=== PATIENT | male | born 1950 | race Caucasian/White ===

== ENCOUNTER 2016-03-11 14:26 | Outpatient (CLI) | payer MEDICARE, OTHER ==
[2015-07-29 01:23] VITALS: BP 112/86
--- NOTE | 2016-03-11 16:39 | Diagnostic Imaging Report ---
[facility] [address] [facility].[address] 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 Findings: Examination right shoulder multiple views demonstrates degenerative changes in the acromioclavicular joint with mild narrowing of the joint space and osteophyte formation. The glenohumeral relationship appears anatomic. There is no evident fracture and no lytic or blastic lesion. Impression: 1. 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 Electronically signed on Mar 11, 2016 3:25:24 PM SCROLL MACHINE OPERATOR by: Pipo BARNES
== END 2016-03-11 14:30 ==
LOC: RAD 14:26
PROVIDERS: ATTEND Family Medicine
DX: M25.511 Pain in right shoulder (principal)
CPT/HCPCS: 73030

== ENCOUNTER 2016-06-03 18:14 | Emergency (ER) | payer MEDICARE, OTHER ==
--- NOTE | 2016-06-03 18:16 | ED Physician Documentation ---
General Adult - HISTORIAN Historian: patient - HPI Stated Complaint: food lodged in esophagus Chief Complaint: General Adult Onset: hours Timing: still present Severity: mild Further Comments: yes (Pt is a 65 yo male who says he has food lodged in his esophagus. Pt appears comfortable and has no airway compromise. Pt has had this problem before. Pt states that he has had balloon dilitation of his esophagus in the past.) - ROS CONST: no problems EYES/ENT: none CVS/RESP: none GI/: other (food lodged in esophagus) MS/SKIN/LYMPH: none - PAST HX Past History: other (GERD, HTN, esophageal dilitation) - SOCIAL HX Smoking History: non-smoker - FAMILY HX Family History: No - VITAL SIGNS Vital Signs: Vital Signs Temp Pulse Resp BP Pulse Ox 112/86 07/28/15 22:35 - REVIEWED ASSESSMENTS Nursing Assessment Reviewed: Yes Vitals Reviewed: Yes <Chauncey Trujillo - Last Filed: 06/03/16 19:01> - VITAL SIGNS Vital Signs: Vital Signs Temp Pulse Resp BP Pulse Ox 97.5 F L 96 H 16 118/95 99 06/03/16 18:15 06/03/16 18:15 06/03/16 18:15 06/03/16 18:15 06/03/16 18:15 <LINH BASHIR - Last Filed: 06/03/16 21:01> - PAST HX Allergies/Adverse Reactions: Allergies Allergy/AdvReac Type Severity Reaction Status Date / Time codeine [Codeine] Allergy Severe Anaphylaxis Verified 06/03/16 18:24 Home Medications: Ambulatory Orders Medication Instructions Recorded Ranitidine HCl 150 mg PO QDAY 06/03/16 Progress - Progress Progress: Glucagon 1 mg IV Care transferred to Linh Bashir at 1900. Will repeat Glucagon in 30 min. If sx not resolved will transfer to [facility] Adhikari. Case discussed with Dr. Adhikari. GI, [facility] <Chauncey Trujillo - Last Filed: 06/03/16 19:01> - Progress Progress: Patient walking in hallway. Patient spitting in cup, unable to swallow his secretions. Extended wait time due to code in ER 1999 Second glucagon given, patient walking around [address] Adhikari at [facility], patient not accepted, admission advisor to speak with ER attending. [address] Monroy, ER attending. Patient updated on plan of care. Explained he would need a ride home from [facility], states he is called a friend. Explained he would be discharged home post procedure. <LINH BASHIR - Last Filed: 06/03/16 21:01> ED Results Lab/Radiology - Orders Orders: ED Orders Category Date Time Status Amoxicillin/Potassium Clav [Augmentin 875Mg/125Mg] Med 06/03/16 18:40 Discontinued 1 each PO NOW ONE Glucagon,Human Recombinant [Glucagen] Med 06/03/16 18:46 Discontinued 1 mg .ROUTE .STK-MED ONE Glucagon,Human Recombinant [Glucagen] Med 06/03/16 18:45 Discontinued 1 mg IVP NOW ONE Glucagon,Human Recombinant [Glucagen] Med 06/03/16 19:56 Discontinued 1 mg IVP NOW ONE <LINH BASHIR - Last Filed: 06/03/16 21:01> General Adult Physical Exam - PHYSICAL EXAM GENERAL APPEARANCE: no distress EENT: pharynx normal NECK: normal inspection, supple RESPIRATORY: no resp distress, chest non-tender CVS: reg rate & rhythm, heart sounds normal ABDOMEN: soft, no organomegaly, normal bowel sounds BACK: normal inspection SKIN: warm/dry, normal color EXTREMITIES: non-tender, normal range of motion, no evidence of injury NEURO: oriented X3, motor nml, sensation nml <Chauncey Trujillo - Last Filed: 06/03/16 19:01> Discharge Decision to Admit: NO <Chauncey Trujillo - Last Filed: 06/03/16 19:01> Decision to Admit: NO Decision Time: 21:00 <LINH BASHIR - Last Filed: 06/03/16 21:01> Clincal Impression: food lodged in esophagus Referrals: Nas Shook MD [Primary Care Provider] - Home Medications: Ambulatory Orders Ranitidine HCl 150 mg PO QDAY 06/03/16 Condition: Stable Disposition: 02 XFER [facility]
[2016-06-03] MEDS ORDERED: AMOXICILLIN/POT 875/125 1 EACH PO ONE (18:40)
[2016-06-03] MEDS ORDERED: GLUCAGON,HUMAN RECOMBINANT 1 MG/ML VIAL IVP ONE ×2 (18:45→19:56)
[2016-06-03] MEDS ORDERED: GLUCAGON,HUMAN RECOMBINANT 1 MG/ML VIAL ONE (18:46)
[2016-06-03] MEDS ORDERED: ONDANSETRON HCL/PF 4 MG/ 2ML VIAL IVP ONE (20:56)
[2016-06-03] MEDS ORDERED: 0.9 % SODIUM CHLORIDE 1,000 ML IV ONE ×2 (21:03)
[2016-06-03 21:33] VITALS: BP 130/93
== END 2016-06-03 21:20 | disposition short-term general hospital (02) ==
LOC: ED 18:14
DX: T18.128A Food in esophagus causing other injury, initial encounter (principal); X58.XXXA Exposure to other specified factors, initial encounter; Y93.9 Activity, unspecified; Y99.9 Unspecified external cause status
CPT/HCPCS: 96374; 96376; 99283; 99284; J1610; J2405; J7030; S1016

== ENCOUNTER 2016-07-27 14:45 | Outpatient (CLI) | payer MEDICARE, OTHER | END 2016-07-27 14:46 | LOC: RT 14:45 | PROVIDERS: ATTEND Family Medicine | DX: J96.10 Chronic respiratory failure, unspecified whether with hypoxia or hypercapnia (principal) ==

== ENCOUNTER 2016-09-05 13:42 | Outpatient (CLI) | payer OTHER ==
--- NOTE | 2016-09-05 14:21 | Diagnostic Imaging Report ---
[facility] [address] [facility].[address] [address] Report Submission Date: Sep 05, 2016 2:19:16 PM CDT Patient Study Name: THOMAS DEGROOT Date: Sep 05, 2016 1:55:26 PM CDT Modality Type: CR Gender: M Description: PELVIS : 54 Institution: [facility] Physician: YAQUELIN VENTURA - [place] Examination: Plain film pelvis/hips History: Discomfort Comparison exams: None provided Findings: 5 views of the pelvis/hips demonstrates normal cortical margins. No fracture. No dislocation. Superior and inferior pubic rami and iliac wings are without abnormality. Impression: No acute osseous process. Electronically signed on Sep 05, 2016 2:19:16 PM CDT by: Kavin BARNES
== END 2016-09-05 13:44 ==
LOC: RAD 13:42
PROVIDERS: ATTEND Family Medicine
DX: M25.551 Pain in right hip (principal)
CPT/HCPCS: 73521

== ENCOUNTER 2016-10-13 11:22 | Emergency (ER) | payer OTHER ==
[2016-10-13 11:40] VITALS: BP 138/92
[2016-10-13] MEDS: ORPHENADRINE CITRATE 60 MG/2ML IM ONE (12:20)
[2016-10-13] MEDS: KETOROLAC TROMETHAMINE 60 MG/2 ML VIAL IM ONE (12:21)
--- NOTE | 2016-10-13 14:30 | ED Physician Documentation ---
Neck Injury/Pain - HISTORIAN Historian: patient - HPI Stated Complaint: neck pain Chief Complaint: Neck Pain Additional Information: x 2 days Onset: days ago (2) Duration: continues in ED Recent Injury: No Context: other (woke this way) Where: home Other Injuries: other (no injury) Severity: moderate Quality: sharp Front/Back of Body, Lg (Color): 1 - pain 2 - pain Associated Symptoms: other (none) Exacerbated By: movement of neck Relieved By: remaining still Further Comments: no - ROS NEURO/PSYCH: denies: difficulty with speech, anxiety, depression EYES/ENT: none CVS/RESP: none CONST: no problems GI/: denies: nausea, vomiting, problems urinating, incontinence MS/SKIN/LYMPH: none - PAST HX Past History: other (htn) Cardiac Risk Factors: hypertension Surgeries/Procedures: none CT/MRI: No Immunizations: referred to PCP Allergies/Adverse Reactions: Allergies Allergy/AdvReac Type Severity Reaction Status Date / Time codeine [Codeine] Allergy Severe Anaphylaxis Verified 10/13/16 11:30 Home Medications: Ambulatory Orders Medication Instructions Recorded Losartan/Hydrochlorothiazide 1 each PO QDAY 10/13/16 [Hyzaar 100-25 Tablet] Metoprolol Tartrate [Lopressor] 50 mg PO DAILY 10/13/16 Pantoprazole Sodium [Protonix] 40 mg PO 0700 10/13/16 Tamsulosin HCl [Flomax] 0.4 mg PO [id number] 10/13/16 - SOCIAL HX Smoking History: non-smoker Alcohol Use: none Drug Use: none - FAMILY HX Family History: no significant history - VITAL SIGNS Vital Signs: Vital Signs Temp Pulse Resp BP Pulse Ox 97.3 F L 89 16 138/92 96 10/13/16 12:28 10/13/16 12:28 10/13/16 12:28 10/13/16 12:28 10/13/16 12:28 - REVIEWED ASSESSMENT Nursing Assessment Reviewed: Yes Vitals Reviewed: Yes Progress - Results/Orders Results/Orders: x-ray c-spine ordered - Progress Progress: pt. stable entire time in er, given norflex 60 mg im, toradol 60 mg im in er Critical Care Note - Critical Care Note Total Time (mins): 0 ED Results Lab/Radiology - Lab Results Lab Results: none ordered - Radiology Radiology Impressions: ddd, djd, no acute fx - Orders Orders: ED Orders Category Date Time Status C SPINE 2 OR 3 VIEWS [RAD] Stat Exams 10/13/16 Ordered Ketorolac Tromethamine [Toradol] Med 10/13/16 12:13 Discontinued 60 mg IM NOW ONE Orphenadrine Citrate [Norflex] Med 10/13/16 12:13 Discontinued 60 mg IM NOW ONE Neck Injury/Pain - Physical Exam General Appearance: alert, moderate distress EENT: nml ENT inspection, pharynx nml Neck: thyroid nml, muscle spasm (bilat paracervical muscles), decreased ROM Nexus Criteria: Nexus criteria neg Back: non-tender, painless ROM Respiratory: chest non-tender, breath sounds nml CVS: heart sounds nml, bilateral pulses nml Abdomen: non-tender, no organomegaly, nml bowel sounds, no distention Skin: warm/dry, normal color Extremities: non-tender, normal range of motion, no evidence of injury, no edema Neuro/Psych: oriented x3, CN's nml as tested, sensation nml, motor nml, mood/ affect nml, jewelry appraiser nml, reflexes nml, jewelry appraiser symmetrical Discharge Clincal Impression: Torticollis, acute Referrals: Primary Doctor,No [Primary Care Provider] - 2 Days Home Medications: Ambulatory Orders Losartan/Hydrochlorothiazide [Hyzaar 100-25 Tablet] 1 each PO QDAY 10/13/16 Metoprolol Tartrate [Lopressor] 50 mg PO DAILY 10/13/16 Pantoprazole Sodium [Protonix] 40 mg PO 0700 10/13/16 Tamsulosin HCl [Flomax] 0.4 mg PO [id number] 10/13/16 Comments: discharged with scripts for parafon forte dsc 500 mg 1 p.i. qid #20, toradol 10 1 p.o. qid #20 Condition: Stable Disposition: 01 HOME, SELF-CARE Decision to Admit: NO Decision Time: 12:20
--- NOTE | 2016-10-13 15:17 | Diagnostic Imaging Report ---
AIDEE GRAY [facility] [address] [facility].[address] [address] Report Submission Date: Oct 13, 2016 12:31:53 PM CDT Patient Study Name: THOMAS DEGROOT Date: Oct 13, 2016 11:45:17 AM CDT Modality Type: CR Gender: M Description: SPINE : 54 Institution: [facility] Physician: AIDEE GRAY Cervical spine -three views CLINICAL HISTORY: Upper neck pain for 3 days. FINDINGS: Examination cervical spine AP, lateral, lateral swimmer's and open-mouth views demonstrates the vertebrae to be anatomically aligned. Prevertebral soft tissues are within normal limits. The C1-2 articulation is normal and the base the odontoid is intact. There is no evident fracture. IMPRESSION: No fracture. Electronically signed on Oct 13, 2016 12:31:53 PM CDT by: Pipo BARNES
== END 2016-10-13 12:28 | disposition home or self-care (01) ==
LOC: ED 11:22
DX: M43.6 Torticollis (principal)
CPT/HCPCS: 72040; J1885; J2360; 96372; 99283

== ENCOUNTER 2016-10-14 10:30 | Emergency (ER) | payer OTHER ==
[2016-10-14] MEDS: oxyCODONE/ACETAMINOPHEN 5/325 TABLET PO ONE (11:34)
--- NOTE | 2016-10-14 11:34 | ED Physician Documentation ---
Neck Injury/Pain - HISTORIAN Historian: patient - HPI Stated Complaint: neck pain Chief Complaint: Neck Pain Additional Information: was here yesterday, states meds not working Onset: days ago (5) Duration: continues in ED Recent Injury: Yes Context: other (unknown) Where: home Other Injuries: neck Severity: moderate Quality: sharp Associated Symptoms: denies: fever, chills, sweating, headache, chest pain, weakness, numbness, tingling Exacerbated By: movement of neck Relieved By: nothing Further Comments: no - ROS NEURO/PSYCH: denies: difficulty with speech, anxiety, depression EYES/ENT: none CVS/RESP: none CONST: no problems GI/: denies: nausea, vomiting, problems urinating, incontinence MS/SKIN/LYMPH: none - PAST HX Past History: arthritis, neck pain Surgeries/Procedures: none Immunizations: referred to PCP Allergies/Adverse Reactions: Allergies Allergy/AdvReac Type Severity Reaction Status Date / Time codeine [Codeine] Allergy Severe Anaphylaxis Verified 10/14/16 10:49 Home Medications: Ambulatory Orders Medication Instructions Recorded Losartan/Hydrochlorothiazide 1 each PO QDAY 10/13/16 [Hyzaar 100-25 Tablet] Metoprolol Tartrate [Lopressor] 50 mg PO DAILY 10/13/16 Pantoprazole Sodium [Protonix] 40 mg PO 0700 10/13/16 Tamsulosin HCl [Flomax] 0.4 mg PO [id number] 10/13/16 - SOCIAL HX Smoking History: non-smoker Alcohol Use: none Drug Use: none - FAMILY HX Family History: no significant history - VITAL SIGNS Vital Signs: Vital Signs Temp Pulse Resp BP Pulse Ox 80 14 130/80 98 10/14/16 11:40 10/14/16 11:40 10/14/16 11:40 10/14/16 11:40 - REVIEWED ASSESSMENT Nursing Assessment Reviewed: Yes Vitals Reviewed: Yes Progress - Results/Orders Results/Orders: no testing ordered - Progress Progress: pt. given percocet 5/325 p.o. in er Critical Care Note - Critical Care Note Total Time (mins): 0 ED Results Lab/Radiology - Lab Results Lab Results: none ordered - Radiology Radiology Impressions: none ordered today, ordered and reviewed yesterday - Orders Orders: ED Orders Category Date Time Status oxyCODONE HCL/ACETAMINOPHEN [Percocet 5-325 mg Tablet] Med 10/14/16 11:28 Discontinued 1 each PO NOW ONE Neck Injury/Pain - Physical Exam General Appearance: alert, moderate distress EENT: nml ENT inspection, pharynx nml, scleral icterus Neck: thyroid nml, muscle spasm, decreased ROM Back: non-tender, painless ROM. No: vertebral point-tendernes, CVA tenderness, muscle spasm Respiratory: chest non-tender, breath sounds nml CVS: heart sounds nml, bilateral pulses nml Abdomen: non-tender, no organomegaly, nml bowel sounds, no distention Skin: warm/dry, normal color Extremities: non-tender, normal range of motion, no evidence of injury, no edema Neuro/Psych: oriented x3, CN's nml as tested, sensation nml, motor nml, mood/ affect nml, supervisor securities vault nml, reflexes nml, supervisor securities vault symmetrical Discharge Clincal Impression: Torticollis Referrals: Primary Doctor,No [Primary Care Provider] - 2 Days Home Medications: Ambulatory Orders Losartan/Hydrochlorothiazide [Hyzaar 100-25 Tablet] 1 each PO QDAY 10/13/16 Metoprolol Tartrate [Lopressor] 50 mg PO DAILY 10/13/16 Pantoprazole Sodium [Protonix] 40 mg PO 0700 10/13/16 Tamsulosin HCl [Flomax] 0.4 mg PO [id number] 10/13/16 Comments: discharged in stable condition with script for percocet 5/325 1 p.o. qid prn pain Condition: Stable Disposition: 01 HOME, SELF-CARE Decision to Admit: NO Decision Time: 11:34
[2016-10-14 11:41] VITALS: BP 130/80
== END 2016-10-14 11:30 | disposition home or self-care (01) ==
LOC: ED 10:30
DX: M43.6 Torticollis (principal)
CPT/HCPCS: 99283; A9270-GY

== ENCOUNTER 2016-12-06 13:59 | Emergency (ER) | payer OTHER ==
--- NOTE | 2016-12-06 14:10 | ED Physician Documentation ---
General Adult - HISTORIAN Historian: patient - HPI Stated Complaint: high blood pressure Chief Complaint: General Adult Additional Information: hypertension reading at home 135/119 Onset: hours (1) Timing: better Severity: other (no pain ) Further Comments: no Last known Well Date: 12/06/16 Last Known Well Time: 13:00 Last known Well Code/Unknown Code: Unknown - ROS CONST: no problems EYES/ENT: none CVS/RESP: none GI/: none MS/SKIN/LYMPH: none NEURO/PSYCH: denies: headache, fainting, dizziness - PAST HX Past History: other (HTN ) Other History: none Surgeries/Procedures: none Immunizations: referred to PCP Allergies/Adverse Reactions: Allergies Allergy/AdvReac Type Severity Reaction Status Date / Time codeine [Codeine] Allergy Severe Anaphylaxis Verified 10/14/16 10:49 Home Medications: Ambulatory Orders Medication Instructions Recorded Losartan/Hydrochlorothiazide 1 each PO QDAY 10/13/16 [Hyzaar 100-25 Tablet] Metoprolol Tartrate [Lopressor] 50 mg PO DAILY 10/13/16 - SOCIAL HX Smoking History: non-smoker Alcohol Use: none Drug Use: none - FAMILY HX Family History: No - VITAL SIGNS Vital Signs: Vital Signs Temp Pulse Resp BP Pulse Ox 130/80 10/14/16 11:40 - REVIEWED ASSESSMENTS Nursing Assessment Reviewed: Yes Vitals Reviewed: Yes General Adult Physical Exam - PHYSICAL EXAM GENERAL APPEARANCE: no distress EENT: eye inspection normal, ENT inspection normal NECK: normal inspection CVS: reg rate & rhythm, heart sounds normal, equal pulses, no murmur ABDOMEN: soft, no organomegaly, normal bowel sounds, no distension BACK: normal inspection SKIN: warm/dry EXTREMITIES: non-tender, normal range of motion NEURO: oriented X3, CN's nml as tested Discharge Clincal Impression: Accelerated hypertension Referrals: Amelia Mirza PRN [Primary Care Provider] - 2 Days Condition: Stable Disposition: 01 HOME, SELF-CARE Decision to Admit: NO Date of Decison to Admit: 12/06/16 Decision Time: 14:21
[2016-12-06 14:14] VITALS: BP 111/82
== END 2016-12-06 14:24 | disposition home or self-care (01) ==
LOC: ED 13:59
DX: I10 Essential (primary) hypertension (principal)
CPT/HCPCS: 99283

== ENCOUNTER 2016-12-17 01:32 | Emergency (ER) | payer OTHER ==
[2016-12-17] MEDS ORDERED: IPRATROPIUM/ALBUTEROL SULFATE 3 ML AMPUL.NEB NEB ONE (01:48)
[2016-12-17] MEDS ORDERED: BUDESONIDE 0.5MG/2ML AMPUL.NEB NEB ONE (01:49)
[2016-12-17] MEDS: IPRATROPIUM/ALBUTEROL SULFATE 3 ML AMPUL.NEB NEB ONE (01:50)
[2016-12-17] MEDS: BUDESONIDE 0.5MG/2ML AMPUL.NEB NEB ONE (02:00)
--- NOTE | 2016-12-17 02:15 | ED Physician Documentation ---
Upper Respiratory Symptoms - HISTORIAN Historian: patient - HPI Stated Complaint: cough Chief Complaint: Cough/ Upper Respiratory Additional Information: cough x 1 week, occ. productive Onset: days ago (7) Duration: sudden-Onset Context: denies: recent foreign travel, insect bite(s), tick(s), recent chemotherapy, multiple patients, same sx Severity: moderate Associated Symptoms: productive cough Worsened by Deep Breath: Yes Further Comments: no - ROS CONST/EYES: denies: weakness, eye redness, eye itching CVS/RESP: other (cough, worse at night) LYMPH: denies: leg swelling, rash, swollen glands, ankle swelling GI/: none NEURO/PSYCH: denies: fainting, dizziness, confusion, anxiety, depression MS/SKIN: denies: joint pain, muscle aches, rash - PAST HX Lung Disease: asthma PE Risk Factors: hypertension Surgeries/Procedures: none Immunizations: referred to PCP Allergies/Adverse Reactions: Allergies Allergy/AdvReac Type Severity Reaction Status Date / Time codeine [Codeine] Allergy Severe Anaphylaxis Verified 12/17/16 01:46 Home Medications: Ambulatory Orders Medication Instructions Recorded Losartan/Hydrochlorothiazide 1 each PO QDAY 10/13/16 [Hyzaar 100-25 Tablet] Metoprolol Tartrate [Lopressor] 50 mg PO DAILY 10/13/16 - SOCIAL HX Smoking History: non-smoker Alcohol Use: none Drug Use: none - FAMILY HX Family History: no significant history - VITAL SIGNS Vital Signs: Vital Signs Temp Pulse Resp BP Pulse Ox 97.8 F 80 16 119/53 95 12/17/16 01:35 12/17/16 01:35 12/17/16 01:35 12/17/16 01:35 12/17/16 01:35 - REVIEWED ASSESSMENTS Nursing Assessment Reviewed: Yes Vitals Reviewed: Yes Progress - Results/Orders Results/Orders: cxr ordered - Progress Progress: pt. given pulmicort 0.5 mg via nebulizer, duoneb via nebulizer, 80 mg depo medrol, 8 mg decadron, 1.2 million units bicillinim in er Critical Care Note - Critical Care Note Total Time (mins): 0 ED Results Lab/Radiology - Lab Results Lab Results: none ordered - Radiology Radiology Impressions: cxr clear of infiltrates - Orders Orders: ED Orders Category Date Time Status CHEST 2 VIEW [CHEST P.A.&LAT 2 VIEWS] [RAD] Stat Exams 12/17/16 Taken Benzonatate [Tessalon] Med 12/17/16 01:52 Discontinued 200 mg PO NOW ONE Budesonide [Pulmicort] Med 12/17/16 01:49 Discontinued 0.5 mg NEB .STK-MED ONE Budesonide [Pulmicort] Med 12/17/16 01:50 Discontinued 0.5 mg NEB 1T ONE Dexamethasone Sod Phosphate [Decadron] Med 12/17/16 01:49 Discontinued 8 mg IM NOW ONE Ipratropium/Albuterol Sulfate [Duoneb] Med 12/17/16 01:48 Discontinued 3 ml NEB .STK-MED ONE Ipratropium/Albuterol Sulfate [Duoneb] Med 12/17/16 01:49 Discontinued 3 ml NEB NOW ONE Penicillin G Benzathine [Bicillin l-A] Med 12/17/16 02:33 Once 1,200,000 units IM NOW ONE methylPREDNISolone ACETATE [Depo-Medrol] Med 12/17/16 01:51 Discontinued 80 mg IM NOW ONE Upper Respiratory Symptoms - EXAM General Appearance: mild distress EENT: eyes nml inspection, nml ENT inspection, lids & conjunct. nml, PERRL, ear nml. No: pain over sinuses Neck: normal inspection, thyroid normal, supple Respiratory: no resp. distress, speaks full sentences, wheezes. No: retractions , splinting, accessory muscle use Abdomen: non-tender, no organomegaly, nml bowel sounds, no distention CVS: reg rate & rhythm, heart sounds normal, equal pulses, no murmur, no gallop , PMI nml, no JVD Skin: color nml, no rash, warm,dry Extremities: non-tender, normal range of motion, no evidence of injury, no edema Neuro/Psych: oriented x3, neuro intact, mood/affect nml Discharge Clincal Impression: Asthmatic bronchitis Qualifiers: Asthma severity: moderate Asthma persistence: persistent Asthma complication type: with acute exacerbation Qualified Code(s): J45.41 - Moderate persistent asthma with (acute) exacerbation Referrals: Amelia Mirza, PRN [Primary Care Provider] - 2 Days Comments: Discharged in stable condition with script for nebulizer. He has albuterol prefills at home he will use. Condition: Stable Disposition: HOME, SELF-CARE Decision to Admit: NO Decision Time: 02:15
[2016-12-17] MEDS: DEXAMETHASONE SOD PHOS 4 MG/ML VIAL IM ONE (02:18)
[2016-12-17] MEDS: methylPREDNISolone ACETATE 80 MG/ML VIAL IM ONE (02:18)
[2016-12-17] MEDS: BENZONATATE 100 MG CAPSULE PO ONE (02:21)
[2016-12-17] MEDS: PENICILLIN G BENZATHINE 1,200,000 UNITS INJ IM ONE (02:44)
[2016-12-17 02:52] VITALS: BP 119/58
--- NOTE | 2016-12-17 06:52 | Diagnostic Imaging Report ---
AIDEE GRAY [facility] [address] [facility] [address] [address] Report Submission Date: Dec 17, 2016 2:36:45 AM CDT Patient Study Name: THOMAS DEGROOT Date: Dec 17, 2016 2:05:57 AM CDT Modality Type: CR Gender: M Description: CHEST : 54 Institution: [facility] Physician: AIDEE GRAY Chest 2 views History: Cough and shortness of breath Findings: Low lung volumes are observed with bronchovascular crowding at the lung bases. Basilar bronchitis cannot be excluded. Heart size and pulmonary vascularity are normal. No pleural effusions are observed. Osseous structures are unremarkable. Impression: Limited exam due to expiratory technique. Basilar bronchitis cannot be excluded. Electronically signed on Dec 17, 2016 2:36:45 AM CDT by: Marco Antonio BARNES
== END 2016-12-17 02:50 | disposition home or self-care (01) ==
LOC: ED 01:32
DX: J45.41 Moderate persistent asthma with (acute) exacerbation (principal)
CPT/HCPCS: 71020; A9270; J1040; J1100; J7626; 96372; 99283

== ENCOUNTER 2017-01-13 17:57 | Emergency (ER) | payer OTHER ==
--- NOTE | 2017-01-13 18:51 | ED Physician Documentation ---
General Adult - HISTORIAN Historian: patient - HPI Stated Complaint: cramping Chief Complaint: General Adult Additional Information: pt has severe intermittent muscle cramps kayce of abd wall neck legs and generalized. THC helps but 'OUT' Onset: other (several months progressive occ has to sleep on floor-has RLS) Timing: worse Severity: moderate, severe - ROS CONST: no problems (as w/cc) EYES/ENT: denies: problems with vision CVS/RESP: none, other (occ dep edema belowknees only =- gone of am) GI/: abdominal pain. denies: vomiting, nausea, diarrhea MS/SKIN/LYMPH: neck pain, leg swelling, leg pain, back pain, other (as above) - PAST HX Past History: hypertension, other (gerd) Surgeries/Procedures: none - SOCIAL HX Smoking History: non-smoker Alcohol Use: rarely (wine) Drug Use: marijuana (used to do several drugs incl heroin) - FAMILY HX Family History: Yes (none significant) - VITAL SIGNS Vital Signs: Vital Signs Temp Pulse Resp BP Pulse Ox 98.4 F 96 H 20 113/85 96 01/13/17 18:05 01/13/17 18:05 01/13/17 18:05 01/13/17 18:05 01/13/17 18:05 - REVIEWED ASSESSMENTS Nursing Assessment Reviewed: Yes Vitals Reviewed: Yes <Conrad Friedman - Last Filed: 01/13/17 18:49> - VITAL SIGNS Vital Signs: Vital Signs Temp Pulse Resp BP Pulse Ox 98.4 F 96 H 20 113/85 96 01/13/17 18:05 01/13/17 18:05 01/13/17 18:05 01/13/17 18:05 01/13/17 18:05 <Chauncey Trujillo - Last Filed: 01/13/17 20:46> - PAST HX Allergies/Adverse Reactions: Allergies Allergy/AdvReac Type Severity Reaction Status Date / Time codeine [Codeine] Allergy Severe Anaphylaxis Verified 01/13/17 18:09 Home Medications: Ambulatory Orders Medication Instructions Recorded Losartan/Hydrochlorothiazide 1 each PO QDAY 10/13/16 [Hyzaar 100-25 Tablet] Metoprolol Tartrate [Lopressor] 50 mg PO DAILY 10/13/16 Progress - Progress Progress: NS 1 L IVF x 2 Pt with ongoing muscle cramping > 1 yr. Pt states he has had work-ups for this , but does not know any details. TSH, sed rate pending. Pt improved with IVF. Flexeril 10 mg, 1/2 or 1 tablet q 8 hrs prn muscle cramping. 1 tablet --> home. - EKG/XRAY/CT EKG: NSR (HR=98; normal AK interval; LAD.) XRAY: chest (No acute pulmonary process.) <Chauncey Trujillo - Last Filed: 01/13/17 20:46> ED Results Lab/Radiology - Orders Orders: ED Orders Category Date Time Status CHEST P.A.&LAT 2 VIEWS [RAD] Stat Exams 01/13/17 Ordered ARTERIAL BLOOD GAS Stat Lab 01/13/17 Uncollected CBC/PLATELET/DIFF Routine Lab 01/13/17 Ordered TSH [THYROID STIMULATING HORMONE] Stat Lab 01/13/17 Ordered NORMAL SALINE @ 1000 MLS/HR ( 1000ml BOLUS) Med 01/13/17 18:48 Ordered 0.9 % Sodium Chloride [Normal Saline] 1,000 ml IV Q1H EKG WITH COMPARISON Stat Ther 01/13/17 Ordered <Conrad Friedman - Last Filed: 01/13/17 18:49> - Lab Results Lab Results: Lab Results 01/13/17 19:14 WBC 7.90 K/ul K/ul (4.00-12.00) RBC 5.50 M/ul H M/ul (3.90-5.20) Hgb 16.8 g/dL g/dL (12.0-18.0) Hct 50.6 % % (37.0-53.0) MCV 92.1 fl fl (80.0-100.0) MCH 30.6 pg pg (28.0-34.0) MCHC 33.2 g/dL g/dL (30.0-36.0) RDW 13.2 % % (11.3-14.3) Plt Count 231 K/mm3 K/mm3 (130-400) Neut % (Auto) 67.4 % % (39.0-79.0) Lymph % (Auto) 16.5 % % (16.0-50.0) Oliver % (Auto) 6.0 % % (0.0-11.0) Eos % (Auto) 6.5 % % (0.0-6.8) Baso % (Auto) 0.6 (0.0-1.5) Neut # (Auto) 5.3 # k/uL # k/uL (1.4-7.7) Lymph # (Auto) 1.3 # k/uL # k/uL (0.6-4.0) Oliver # (Auto) 0.5 # k/uL # k/uL (0.0-0.9) Eos # (Auto) 0.5 # k/uL # k/uL (0.0-0.6) Baso # (Auto) 0.0 # k/uL # k/uL (0.0-0.5) Reactive Lymphs % 3.0 % % (0.0-5.0) Reactive Lymphs # 0.2 # k/uL # k/uL (0.0-0.8) - Orders Orders: ED Orders Category Date Time Status CHEST P.A.&LAT 2 VIEWS [RAD] Stat Exams 01/13/17 Taken ARTERIAL BLOOD GAS Stat Lab 01/13/17 Uncollected CBC/PLATELET/DIFF Routine Lab 01/13/17 19:14 Completed CMP Routine Lab 01/13/17 19:32 Received TSH [THYROID STIMULATING HORMONE] Stat Lab 01/13/17 19:14 Received sed rate [SEDIMENTATION RATE (ESR)] Routine Lab 01/13/17 19:33 Received 0.9 % Sodium Chloride [Normal Saline] 1,000 ml Med 01/13/17 18:48 Discontinued IV Q1H NORMAL SALINE @ 1000 MLS/HR ( 1000ml BOLUS) Med 01/13/17 20:01 Ordered 0.9 % Sodium Chloride [Normal Saline] 1,000 ml IV Q1H EKG WITH COMPARISON Stat Ther 01/13/17 Ordered <Chauncey Trujillo - Last Filed: 01/13/17 20:46> General Adult Physical Exam - PHYSICAL EXAM GENERAL APPEARANCE: moderate distress EENT: eye inspection normal NECK: normal inspection, stiff neck. No: thyromegaly, lymphadenopathy, carotid bruit RESPIRATORY: No: no resp distress CVS: reg rate & rhythm ABDOMEN: soft, non-tender. No: abnormal bowel sounds BACK: CVA tenderness (R), CVA tenderness (L), other (kayce neck tendernesss dbilat andesp spinous processes---abm not so tender right now). No: no CVA tenderness SKIN: warm/dry, normal color. No: cyanosis, diaphoresis, jaundice EXTREMITIES: normal range of motion, edema (mild) NEURO: oriented X3, motor nml, sensation nml, mood/affect nml <Conrad Friedman - Last Filed: 01/13/17 18:49> Discharge <Conrad Friedman - Last Filed: 01/13/17 18:49> Decision to Admit: NO Decision Time: 20:33 <Chauncey Trujillo - Last Filed: 01/13/17 20:46> Clincal Impression: muscle cramping Referrals: Amelia Mirza, PRN [Primary Care Provider] - Condition: Stable Disposition: 01 HOME, SELF-CARE
[2017-01-13] MEDS: 0.9 % SODIUM CHLORIDE 1,000 ML IV ONE ×2 (19:10→20:12)
[2017-01-13 19:22] LABS: BASOPHILS % 0.6 (0.0-1.5); EOSINOPHILS % 6.5 % (0.0-6.8); MEAN CORPUSCULAR HEMOGLOBIN 30.6 pg (28.0-34.0); MEAN CORPUSCULAR VOLUME 92.1 fl (80.0-100.0); NEUTROPHILS # 5.3 # k/uL (1.4-7.7)
[2017-01-13 20:02] LABS: eGFR (African) > 60; eGFR (Non-African) > 60
[2017-01-13] MEDS: CYCLOBENZAPRINE HCL 5 MG TABLET PO ONE (20:58)
[2017-01-13 21:07] VITALS: BP 110/82
--- NOTE | 2017-01-14 06:17 | Diagnostic Imaging Report ---
DIRK TRAN [facility] [address] [facility] [address] [place], [place]. [address] Report Submission Date: Jan 13, 2017 10:43:23 PM REHAB DIRECTOR Patient Study Name: EMERY LEÓN Date: Jan 13, 2017 10:23:00 PM REHAB DIRECTOR Modality Type: CR Gender: M Description: CHEST : [birth year] Institution: [facility] Physician: DIRK TRAN CRISTÓBAL Chest 2 views History: Cough and fever Findings: The exam is expiratory with bilateral bronchovascular crowding. There is no confluent infiltrate or pleural effusion. Heart size and pulmonary vascularity are normal. Bilateral bronchial wall thickening is present. Impression: Expiratory film with probable bilateral bronchitis. No evidence of pneumonia. Electronically signed on Jan 13, 2017 10:43:23 PM REHAB DIRECTOR by: Marco Antonio BARNES
[2017-01-16 07:05] LABS: APPEARANCE,URINE CLEAR (CLEAR); COLOR,URINE YELLOW (YELLOW); OCCULT BLOOD,URINE NEGATIVE (NEGATIVE); PH URINE 5.5 (5.0 - 8.0); UROBILINOGEN URINE 0.2 Eu (0.2-1.0)
--- NOTE | 2017-01-16 10:18 | Diagnostic Imaging Report ---
CRISSY BROCK [facility] [address] [facility] [address] [address] Report Submission Date: Jan 13, 2017 7:00:22 PM COMMISSION AGENT LIVESTOCK Patient Study Name: THOMAS DEGROOT Date: Jan 13, 2017 6:47:49 PM COMMISSION AGENT LIVESTOCK Modality Type: CR Gender: M Description: CHEST : 54 Institution: [facility] Physician: CRISSY BROCK Examination: PA and lateral chest. History: Evaluate lung helms. Wall comparison exam: 17 December 2016 Findings: PA lateral chest demonstrate a normal cardiac silhouette. Tortuous aorta - stable the prior study. No focal infiltrate. No blunting of the costophrenic margins. Osseous structures are appropriate for age. Impression: No acute pulmonary process. Electronically signed on Jan 13, 2017 7:00:22 PM COMMISSION AGENT LIVESTOCK by: Kavin BARNES
== END 2017-01-13 20:50 | disposition home or self-care (01) ==
LOC: ED 17:57
DX: R25.2 Cramp and spasm (principal)
CPT/HCPCS: 71020; 80053; 84443; 85025; 85651; 93005; J7030; 81002; 96360; 96361; 99283; S1016

== ENCOUNTER 2017-03-11 14:13 | Emergency (ER) | payer OTHER ==
[2017-03-11 14:44] VITALS: BP 146/65
[2017-03-11 14:58] LABS: BASOPHILS % 1.4 (0.0-1.5); MEAN CORPUSCULAR HEMOGLOBIN 30.1 pg (28.0-34.0); MONOCYTES % 8.3 % (0.0-11.0); NEUTROPHILS # 2.4 # k/uL (1.4-7.7)
[2017-03-11 15:12] LABS: eGFR (African) > 60; eGFR (Non-African) > 60
--- NOTE | 2017-03-11 15:19 | Diagnostic Imaging Report ---
CRISSY BROCK [facility] [address] [facility] [address] [address] Report Submission Date: Mar 11, 2017 3:13:07 PM SOLAR INSTALLATION MANAGER Patient Study Name: THOMAS DEGROOT Date: Mar 11, 2017 3:03:04 PM SOLAR INSTALLATION MANAGER Modality Type: CR Gender: M Description: CHEST : 54 Institution: [facility] Physician: CRISSY BROCK Examination: PA and lateral chest. History: Evaluate lung helms. Comparison exam: 13 January 2017 Findings: PA lateral chest demonstrate a normal cardiac silhouette. Stable tortuous aorta. No focal infiltrate. No blunting of the costophrenic margins. Osseous structures are appropriate for age. Impression: No acute pulmonary process. Electronically signed on Mar 11, 2017 3:13:07 PM SOLAR INSTALLATION MANAGER by: Kavin BARNES
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
== END 2017-03-11 15:50 | disposition home or self-care (01) ==
LOC: ED 14:13
DX: R05 Cough (principal)
CPT/HCPCS: 71020; 80053; 85025; 99283; S1016

== ENCOUNTER 2017-03-27 07:33 | Observation (INO) | payer OTHER ==
[2017-03-27] MEDS ORDERED: MAG HYDROX/AL HYDROX/SIMETH 30 ML, Lidocaine 2%Visc 15ml 20 MG, PHENobarb/HYOSCY/ATROPI... PO ONE ×3 (07:40)
[2017-03-27 07:54] LABS: BASOPHILS % 0.8 (0.0-1.5); EOSINOPHILS % 7.8 % (0.0-6.8); MEAN CORPUSCULAR HEMOGLOBIN 30.7 pg (28.0-34.0); MEAN CORPUSCULAR VOLUME 92.4 fl (80.0-100.0); MONOCYTES % 4.8 % (0.0-11.0); NEUTROPHILS # 7.8 # k/uL (1.4-7.7)
--- NOTE | 2017-03-27 07:54 | ED Physician Documentation ---
General Adult - HISTORIAN Historian: patient, paramedics - [facility] Stated Complaint: abd pain Chief Complaint: General Adult Onset: hours Timing: still present Severity: moderate Further Comments: yes (Pt is a 66 yo male with abd pain in the RUQ. Pt has seen his pcp Mirtha Mirza about this and has had recent imaging studies. An abd u /s on 03/24/17 showed numerous renal cysts and an echogenic liver c/w fatty infiltration. Pt had had an abd CT on 03/17/17 that also showed density changes on the liver. Pt had a chest CT on 03/17/17 showing calcified granulomata and a non-calcified 2 mm nodule with <1% chance of malignancy by criteria. Pt complains that his RUQ is numb and that the pain there is stabbing. Pt has unexplained bruising on his R lower flank. He does not recall injuring himself. ) - ROS CONST: other (malaise) EYES/ENT: none CVS/RESP: none GI/: abdominal pain, nausea - PAST HX Past History: hypertension, other (CAD) Allergies/Adverse Reactions: Allergies Allergy/AdvReac Type Severity Reaction Status Date / Time codeine [Codeine] Allergy Severe Anaphylaxis Verified 03/11/17 14:45 Home Medications: Ambulatory Orders Medication Instructions Recorded Ipratropium/Albuterol Sulfate 3 ml INH QID 03/11/17 [Duoneb] Losartan Potassium [Cozaar] 100 mg PO DAILY 03/11/17 Pantoprazole Sodium [Protonix] 40 mg PO BID 03/11/17 Metoprolol Tartrate [Lopressor] 50 mg PO DAILY 03/27/17 - SOCIAL HX Smoking History: non-smoker - FAMILY HX Family History: No - VITAL SIGNS Vital Signs: Vital Signs Temp Pulse Resp BP Pulse Ox 146/65 03/11/17 15:51 - REVIEWED ASSESSMENTS Nursing Assessment Reviewed: Yes Vitals Reviewed: Yes Progress - Progress Progress: NS 1 L x 2 GI cocktail Famotidine 20 mg IV no change NS 1 L x 2 Toradol 30 mg IV no change Bentyl 20 mg po Rhabdomyolysis with VY=411. Pt is not on meds known to cause this and has not been immobile. Admit to Dr. Shook. - EKG/XRAY/CT EKG: rhythm (sinus tachycardia, EF=692; LAD; incomplete LBBB.) ED Results Lab/Radiology - Orders Orders: ED Orders Category Date Time Status Continuous EKG monitoring Q30M Care 03/27/17 07:41 Active Continuous Pulse Oximetry Q30M Care 03/27/17 07:[address] IV Lock 1T Care 03/27/17 07:41 Active ABDOMEN 1 VIEW [RAD] Stat Exams 03/27/17 Ordered CHEST 1 VIEW [RAD] Stat Exams 03/27/17 07:41 Ordered CBC/PLATELET/DIFF Routine Lab 03/27/17 07:50 Received CKMB Stat Lab 03/27/17 07:50 Received CMP Routine Lab 03/27/17 07:50 Received CREATINE KINASE Routine Lab 03/27/17 07:50 Received LIPASE Stat Lab 03/27/17 07:50 Received TROPONIN I (cTnI) Stat Lab 03/27/17 07:50 Received Mag Hydrox/Al Hydrox/Simeth [Mylanta] 30 ml Med 03/27/17 07:40 Discontinued Lidocaine 2%Visc 15ml [Xylocaine] 20 mg PHENobarb/HYOSCY/ATROPINE/SCOP [] 10 ml PO NOW Oxygen Daily Oxygen 03/27/17 07:45 Ordered EKG WITH COMPARISON Stat Ther 03/27/17 07:41 Ordered General Adult Physical Exam - PHYSICAL EXAM GENERAL APPEARANCE: moderate distress EENT: pharynx normal NECK: normal inspection, supple RESPIRATORY: no resp distress, chest non-tender, breath sounds normal CVS: reg rate & rhythm, heart sounds normal ABDOMEN: soft, decreased BS, other (tenderness RUQ) BACK: normal inspection, no CVA tenderness SKIN: other (ecchymosis R mid-lower abd, laterally) EXTREMITIES: non-tender, normal range of motion, no evidence of injury NEURO: oriented X3, motor nml, sensation nml Discharge Clincal Impression: Abdominal pain Qualifiers: Abdominal location: right upper quadrant Qualified Code(s): R10.11 - Right upper quadrant pain Rhabdomyolysis Qualifiers: Rhabdomyolysis type: non-traumatic Qualified Code(s): M62.82 - Rhabdomyolysis Referrals: Nas Shook MD [Primary Care Provider] - Condition: Stable Disposition: 09 ADMITTED INPATIENT Decision to Admit: [id number] Decision Time: 12:53
[2017-03-27 08:08] LABS: eGFR (African) > 60; eGFR (Non-African) > 60
[2017-03-27] MEDS ORDERED: Lidocaine 2%Visc 15ml 20 MG/ML UDC ONE (08:20)
[2017-03-27] MEDS ORDERED: MAGNESIUM HYDROXIDE/AL HYDROX 30 ML UDC PO ONE (08:20)
[2017-03-27] MEDS ORDERED: 0.9 % SODIUM CHLORIDE 1,000 ML IV ONE ×2 (08:50→11:06)
[2017-03-27] MEDS ORDERED: FAMOTIDINE/PF 20 MG/2 ML VIAL IVP ONE (08:51)
[2017-03-27] MEDS ORDERED: ONDANSETRON HCL/PF 4 MG/ 2ML VIAL IVP ONE (09:08)
[2017-03-27] MEDS: KETOROLAC TROMETHAMINE 30 MG/1ML VIAL IVP ONE ×2 (09:26→15:38)
[2017-03-27] MEDS ORDERED: DICYCLOMINE HCL 20 MG TABLET PO ONE (10:34)
--- NOTE | 2017-03-27 13:21 | Diagnostic Imaging Report ---
DIRK TRAN [facility] [address] [facility] [address] [address] Report Submission Date: Mar 27, 2017 8:17:37 AM FLASHER ADJUSTER Patient Study Name: THOMAS DEGROOT Date: Mar 27, 2017 7:53:01 AM FLASHER ADJUSTER Modality Type: CR Gender: M Description: CHEST : 54 Institution: [facility] Physician: DIRK TRAN Examination: PA and lateral chest. History: Evaluate lung helms. Comparison exam: 13 January 2017 Findings: PA lateral chest demonstrate a normal cardiac and mediastinal silhouette. Tortuous aorta. No focal infiltrate. No blunting of the costophrenic margins. Osseous structures are appropriate for age. Impression: No acute appearing pulmonary process. Electronically signed on Mar 27, 2017 8:17:37 AM FLASHER ADJUSTER by: Kavin BARNES
--- NOTE | 2017-03-27 13:23 | Diagnostic Imaging Report ---
DIRK TRAN [facility] [address] [facility] [address] [place] [address]. [address] Report Submission Date: Mar 27, 2017 8:19:07 AM BOTTOM WORKER Patient Study Name: THOMAS DEGROOT Date: Mar 27, 2017 7:56:59 AM BOTTOM WORKER Modality Type: CR Gender: M Description: ABDOMEN : 54 Institution: [facility] Physician: DIRK TRAN Examination: Obstruction series History: Abdominal discomfort Findings: 4 views obtained of the abdomen. No abnormal dilation of the large or small bowel. Air and stool throughout the large bowel. No suspicious calcification projecting over the renal fossa or the lower pelvic region. Pelvic phleboliths. Osseous structures demonstrate degenerative changes. Impression: No obstruction. No suspicious calcifications by plain film sensitivity. Electronically signed on Mar 27, 2017 8:19:07 AM BOTTOM WORKER by: Kavin BARNES
[2017-03-27] MEDS ORDERED: SALINE FLUSH 10 ML DISP.SYRIN IVF ONE ×2 (15:22→20:17)
[2017-03-27] MEDS: 0.9 % SODIUM CHLORIDE 1,000 ML IV SCH (15:39)
[2017-03-27] MEDS: IPRATROPIUM/ALBUTEROL SULFATE 3 ML AMPUL.NEB NEB SCH ×3 (15:43→20:26)
[2017-03-27 18:26] VITALS: BMI 38.7
[2017-03-27] MEDS ORDERED: MEPERIDINE HCL/PF 50 MG/ML DISP.SYRIN IVP ONE (20:05)
[2017-03-27] MEDS: PANTOPRAZOLE SODIUM 40 MG TABLET PO SCH (20:25)
[2017-03-27] MEDS: KETOROLAC TROMETHAMINE 30 MG/1ML VIAL IVP PRN (22:22)
[2017-03-28] MEDS: 0.9 % SODIUM CHLORIDE 1,000 ML IV SCH ×4 (01:09→23:12)
[2017-03-28] MEDS ORDERED: SALINE FLUSH 10 ML DISP.SYRIN IVF ONE (02:33)
[2017-03-28 04:02] LABS: APPEARANCE,URINE CLEAR (CLEAR); COLOR,URINE AMBER (YELLOW); OCCULT BLOOD,URINE NEGATIVE (NEGATIVE); UROBILINOGEN URINE 0.2 Eu (0.2-1.0)
[2017-03-28 06:22] LABS: BASOPHILS % 0.9 (0.0-1.5); EOSINOPHILS % 11.7 % (0.0-6.8); MEAN CORPUSCULAR HEMOGLOBIN 30.4 pg (28.0-34.0); MEAN CORPUSCULAR VOLUME 93.8 fl (80.0-100.0); MONOCYTES % 6.2 % (0.0-11.0); NEUTROPHILS # 4.2 # k/uL (1.4-7.7)
[2017-03-28] MEDS ORDERED: KETOROLAC TROMETHAMINE 30 MG/1ML VIAL ONE (08:44)
[2017-03-28] MEDS: IPRATROPIUM/ALBUTEROL SULFATE 3 ML AMPUL.NEB NEB SCH ×4 (08:45→21:13)
[2017-03-28] MEDS: KETOROLAC TROMETHAMINE 30 MG/1ML VIAL IVP PRN ×2 (08:52→20:37)
[2017-03-28] MEDS: PANTOPRAZOLE SODIUM 40 MG TABLET PO SCH ×2 (08:54→20:32)
[2017-03-28] MEDS: METOPROLOL TARTRATE 50 MG TABLET PO SCH (08:54)
[2017-03-28] MEDS ORDERED: LOSARTAN POTASSIUM 50 MG TABLET PO SCH (09:00)
[2017-03-28 09:31] LABS: eGFR (African) > 60; eGFR (Non-African) > 60
--- NOTE | 2017-03-28 09:41 | History and Physical Report ---
CHIEF COMPLAINT: Right upper quadrant pain. HISTORY OF PRESENT ILLNESS: This is a 66-year-old male well known to myself who actually has been seeing Mirtha Mirza here in town because of increasing right upper quadrant pain over the last week. He has had multiple CTs which have shown some fatty infiltration of his liver, as well as liver cysts and some calcified pulmonary nodules but no clear etiology for his right upper quadrant pain. He has not had a HIDA scan. He states that his pain has been present for a week but getting progressively worse. He also has some right abdominal wall numbness associated with this. He has not had any fever, chills, nausea, or vomiting but generally just feels very weak and the pain is significant. PAST MEDICAL HISTORY: 1. History of morbid obesity. 2. Hypertension. 3. Hyperlipidemia. 4. He is a recovered alcoholic. He has not drank for 20 years. 5. History of explosive personality disorder. 6. Environmental allergies. 7. An esophageal stricture. 8. Seborrhoic keratosis. PAST SURGICAL HISTORY: He has had no surgeries. MEDICATIONS: 1. Losartan 100 mg p.o. daily. 2. Dicyclomine 20 mg p.o. daily. 3. Metoprolol tartrate 50 mg p.o. daily. 4. Pantoprazole 40 mg daily. 5. Tramadol 50 mg p.o. every 6 hours. ALLERGIES: Codeine. SOCIAL HISTORY: He lives alone. He has never . Nonsmoker. No children. No alcohol. Moderate caffeine intake. 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 FAMILY HISTORY: Mother at age 70 from coronary vascular disease. Father at age 83 from coronary vascular disease and alcoholism. He has a brother who is an active alcoholic. Sister has hypertension. REVIEW OF SYSTEMS: He has not had any bowel movements recently, although he denies he is significantly constipated. He has not had any fever, chills, nausea, or vomiting. In fact his vital signs here show him to be normotensive and afebrile. PHYSICAL EXAMINATION: General: This is a very pleasant bearded morbidly obese 66-year-old male with significant central obesity. HEENT: Shows his head to be normocephalic and atraumatic. His mucous membranes are a little bit dry. Dentition are in poor repair. Neck: No carotid bruits. No thyroid masses. Lungs: His lungs show some expiratory wheezes in all lung helms. He has a wet productive cough. Heart: Regular. No murmurs. Abdomen: Soft. A remarkable large ecchymosis is noted on his right lower and mid-abdomen. He states he was completely unaware of this until it was brought to his attention by Dr. Trujillo in the emergency room. He has significant right upper quadrant tenderness. No scars are noted to suggest a previous cholecystectomy. He has no guarding or rebound. Extremities: Warm and well perfused. There is about 1+ edema in bilateral lower extremities. Easily palpable dorsalis pedis and posterior tibial pulses are noted. Neurologic: His mental status shows him to be oriented to place, person, and time. LABORATORY: Shows a white count of 10,400, hemoglobin 14.7, hematocrit 44.3, platelets 265, 000. Chemistry panel shows creatine kinase of 874. Troponin is negative. Glucose 154. No significant elevation in LFTs. Lipase is 66. ASSESSMENT: Right upper quadrant pain. Certainly let us entertain the possibility of his gallbladder as a possibility for this. PLAN: 1. We are going to treat his pain tonight. 2. May need to make arrangements for him to have a HIDA scan with CCK stimulation. 3. We will attempt to read his films that he brought in with him, as none of our computers here on [facility] will read them because their operating system has not been updated for a long time. [facility]
[2017-03-28] MEDS ORDERED: MEPERIDINE HCL/PF 50 MG/ML DISP.SYRIN IVP PRN (10:14)
--- NOTE | 2017-03-28 10:25 | Inpatient Progress Note ---
Subjective - Required Recertification Statement I anticipate X number of days because-include discharge plan: 1 - Review of Systems Events since last encounter: Jeremy did get some relief from his right upper quadrant pain with the demerol and toradol. His right sided abdominal wall bruise is a little worse this morning. I called [facility], and although Jeremy thought that he had a CT of his abdomen there, they told me that he has only had a complete abdominal u/s and CXR. He is still coughing quite a bit. General: Denies: Chills HEENT: Denies: Head Aches, Visual Changes Pulmonary: Dyspnea, Cough Cardiovascular: Denies: Chest Pain Gastrointestinal: Nausea, Abdominal Pain (right upper quadrant). Denies: Vomiting Genitourinary: Denies: Dysuria, Frequency Musculoskeletal: Denies: Neck Pain Neurological: Denies: Weakness, Numbness Objective - Exam Vitals and I&O: Vital Signs Temp 96.4 F L 03/28/17 06:00 Pulse 118 H 03/28/17 08:57 Resp 22 03/28/17 08:00 BP 132/76 03/28/17 06:00 Pulse Ox 90 L 03/28/17 06:00 Intake & Output 03/27/17 03/27/17 03/28/17 11:59 23:59 11:59 Intake Total 720 2300 Balance 720 2300 Weight 122.47 kg Intake: IV 1100 Right Hand 1100 Oral 720 1200 Other: Voiding Method Toilet # Voids 3 2 General: Alert, Oriented to Person, Oriented to Place, Oriented to Time, Mild distress HEENT: Atraumatic, PERRLA Neck: Supple, No JVD Lungs: Wheezes Cardiovascular: Regular rate Abdomen: Normal bowel sounds, Other (Large right abdominal wall ecchymosis and tenderness) Extremities: No clubbing, No cyanosis, No edema Skin: Normal, [place] Neurological: Normal speech - Results Results: Laboratory Results WBC 6.30 K/ul (4.00-12.00) 03/28/17 06:00 RBC 4.16 M/ul (3.90-5.20) 03/28/17 06:00 Hgb 12.6 g/dL (12.0-18.0) 03/28/17 06:00 Hct 39.0 % (37.0-53.0) 03/28/17 06:00 MCV 93.8 fl (80.0-100.0) 03/28/17 06:00 MCH 30.4 pg (28.0-34.0) 03/28/17 06:00 MCHC 32.4 g/dL (30.0-36.0) 03/28/17 06:00 RDW 13.0 % (11.3-14.3) 03/28/17 06:00 Plt Count 208 K/mm3 (130-400) 03/28/17 06:00 Neut % (Auto) 65.7 % (39.0-79.0) 03/28/17 06:00 Lymph % (Auto) 12.1 % (16.0-50.0) L 03/28/17 06:00 [place] % (Auto) 6.2 % (0.0-11.0) 03/28/17 06:00 Eos % (Auto) 11.7 % (0.0-6.8) H 03/28/17 06:00 Baso % (Auto) 0.9 (0.0-1.5) 03/28/17 06:00 Neut # (Auto) 4.2 # k/uL (1.4-7.7) 03/28/17 06:00 Lymph # (Auto) 0.8 # k/uL (0.6-4.0) 03/28/17 06:00 [place] # (Auto) 0.4 # k/uL (0.0-0.9) 03/28/17 06:00 Eos # (Auto) 0.7 # k/uL (0.0-0.6) H 03/28/17 06:00 Baso # (Auto) 0.1 # k/uL (0.0-0.5) 03/28/17 06:00 Reactive Lymphs % 3.4 % (0.0-5.0) 03/28/17 06:00 Reactive Lymphs # 0.2 # k/uL (0.0-0.8) 03/28/17 06:00 Sodium 139 mmol/L (136-145) 03/28/17 06:00 Potassium 4.4 mmol/L (3.5-5.1) 03/28/17 06:00 Chloride 101 mmol/L (98-107) 03/28/17 06:00 Carbon Dioxide 28 mmol/L (22-30) 03/28/17 06:00 BUN 19 mg/dL (9-20) 03/28/17 06:00 Creatinine 0.90 mg/dL (0.66-1.25) 03/28/17 06:00 Estimated Creat Clear 143 03/28/17 06:00 Est GFR ( Amer) > 60 (60-) 03/28/17 06:00 Est GFR (Non-Af Amer) > 60 (60-) 03/28/17 06:00 Glucose 99 mg/dL (74-106) 03/28/17 06:00 Calcium 8.6 mg/dL (8.4-10.2) 03/28/17 06:00 Total Bilirubin 0.9 mg/dL (0.2-1.3) 03/28/17 06:00 AST 36 U/L (15-46) 03/28/17 06:00 ALT 36 U/L (13-69) 03/28/17 06:00 Alkaline Phosphatase 49 U/L (38-126) 03/28/17 06:00 Creatine Kinase 863 U/L (55-170) H 03/28/17 06:00 CK-MB (CK-2) 5.2 ng/mL (0.0-5.6) 03/27/17 07:50 Troponin I < 0.03 ng/mL (0.03-0.06) L 03/27/17 07:50 NT-Pro-B Natriuret Pep 34.5 pg/mL (15.0-125.0) 03/27/17 07:50 Total Protein 7.2 g/dL (6.3-8.2) 03/27/17 07:50 Albumin 4.0 g/dL (3.5-5.0) 03/27/17 07:50 Lipase 66 U/L (23-300) 03/27/17 07:50 Urine Color Leslee (YELLOW) 03/27/17 12:32 Urine Appearance Clear (CLEAR) 03/27/17 12:32 Urine pH 6.0 (5.0 - 8.0) 03/27/17 12:32 Ur Specific Arp 1.025 (1.010-1.030) 03/27/17 12:32 Urine Protein Trace mg/dL (NEGATIVE) 03/27/17 12:32 Urine Ketones Negative mg/dL (NEGATIVE) 03/27/17 12:32 Urine Occult Blood Negative (NEGATIVE) 03/27/17 12:32 Urine Nitrite Negative (NEGATIVE) 03/27/17 12:32 Urine Bilirubin Negative (NEGATIVE) 03/27/17 12:32 Urine Urobilinogen 0.2 Eu (0.2-1.0) 03/27/17 12:32 Ur Leukocyte Esterase Negative (NEGATIVE) 03/27/17 12:32 Urine Glucose Negative mg/dL (NEGATIVE) 03/27/17 12:32 Assessment/Plan - Assessment/Plan (1) Abdominal pain Status: Acute Current Visit: Yes Qualifiers: Abdominal location: right upper quadrant Qualified Code(s): R10.11 - Right upper quadrant pain Assessment: Will proceed with CT abdomen and pelvis with contrast HIDA scan likely will be needed to confirm whether or not GB pathology is a factor in his pain (2) Rhabdomyolysis Status: Acute Current Visit: Yes Qualifiers: Rhabdomyolysis type: non-traumatic Qualified Code(s): M62.82 - Rhabdomyolysis Assessment: With CK still elevated, renal labs stable (3) Asthmatic bronchitis Status: Acute Current Visit: No Qualifiers: Asthma severity: moderate Asthma persistence: persistent Asthma complication type: with acute exacerbation Qualified Code(s): J45.41 - Moderate persistent asthma with (acute) exacerbation Assessment: Chronic
[2017-03-28] MEDS: traMADol HCL 50 MG TABLET PO PRN ×2 (15:17→23:55)
[2017-03-28] MEDS ORDERED: LORazepam 1 MG TABLET PO PRN (19:14)
[2017-03-28] MEDS ORDERED: LORazepam 1 MG TABLET PO SCH (20:00)
[2017-03-28 20:01] LABS: APPEARANCE,URINE Clear (CLEAR); COLOR,URINE Yellow (YELLOW); OCCULT BLOOD,URINE Negative (NEGATIVE); PH URINE 5.5 (5.0 - 8.0); UROBILINOGEN URINE 0.2 Eu (0.2-1.0)
[2017-03-29] MEDS: KETOROLAC TROMETHAMINE 30 MG/1ML VIAL IVP PRN (02:37)
[2017-03-29] MEDS: 0.9 % SODIUM CHLORIDE 1,000 ML IV SCH (04:50)
[2017-03-29 06:32] VITALS: BP 153/85
[2017-03-29 07:07] LABS: MEAN CORPUSCULAR HEMOGLOBIN 30.8 pg (28.0-34.0); MEAN CORPUSCULAR VOLUME 94.3 fl (80.0-100.0)
[2017-03-29 07:59] LABS: eGFR (African) > 60; eGFR (Non-African) > 60
--- NOTE | 2017-03-29 08:01 | Diagnostic Imaging Report ---
[facility]/MED SURG [facility] [address] [facility] [address] [place], [place]. [address] Report Submission Date: Mar 28, 2017 12:22:46 PM METROLOGY MANAGER Patient Study Name: THOMAS DEGROOT Date: Mar 28, 2017 11:42:05 AM METROLOGY MANAGER Modality Type: CT\SR Gender: M Description: CT ABD & PELVIS W/ CON : 54 Institution: [facility] Physician: [facility]/MED SURG Examination: CT Abdomen/pelvis History: Generalized abdominal discomfort Comparison exams: Plain film dated 27 March 2017 Technique: CT Abdomen/pelvis with IV protocol. Findings: Liver demonstrates diffuse low attenuation. No central lesion. Spleen , adrenals, pancreas, and gallbladder are without gross irregularity. No abnormal enhancement. No gallstone. Numerous renal cortical cysts. No suspicious cortical or calyceal calcifications. Ureters are nondilated in their course through the abdomen and pelvis. No central calcification. No bladder margin without abnormality. Abdominal aorta demonstrates peripheral atherosclerotic disease. No aneurysm. Cardiac silhouette not enlarged. No pericardial effusion. Bowel unopacified limiting evaluation. No abnormal small bowel small bowel dilation. Stool within the large bowel limiting sensitivity. No mesenteric inflammatory changes or free fluid. Appendix is visualized and is without inflammatory changes. Few scattered sigmoidal diverticula. No adjacent inflammation. Osseous structures demonstrate degenerative changes. Lung bases demonstrates right base consolidation with mild pleural thickening/effusion. Impression: No evidence for acute upper abdominal organ inflammatory process. Fatty liver. No gallstone. Bilateral renal cysts. No evidence for suspicious renal calcification or abnormal ureteric dilation. No abnormal bowel dilation or inflammation. Sigmoid diverticulosis. No evidence for acute diverticulitis. Right lung base consolidation/effusion. Electronically signed on Mar 28, 2017 12:22:46 PM METROLOGY MANAGER by: Kavin Jones Right lateral soft tissue edema. No formed fluid collection to suggest hematoma or abscess. Addendum electronically signed by Kavin Jones on March 28, 2017 7:04:34 PM METROLOGY MANAGER MTDD
[2017-03-29] MEDS: PANTOPRAZOLE SODIUM 40 MG TABLET PO SCH (08:54)
[2017-03-29] MEDS: METOPROLOL TARTRATE 50 MG TABLET PO SCH (08:54)
--- NOTE | 2017-03-29 09:51 | Discharge Summary ---
DATE OF ADMISSION: March 27, 2017 DATE OF DISCHARGE: March 29, 2017 DIAGNOSES ON THIS HOSPITALIZATION: 1. Right upper quadrant pain. 2. Abdominal wall hematoma. 3. Obesity. SUMMARIZATION OF ADMISSION HISTORY AND PHYSICAL: This is a 66-year-old male well known to myself who actually has been seeing Mirtha Mirza in [facility] because of increasing right upper quadrant pain over the last week. He had several studies; however, about a day before he came in and after he had those previous studies, he experienced a large spontaneous bruise on his right abdomen which was moderately uncomfortable for him. As a result, we did a CT scan which showed an abdominal wall bruise basically. It did not look like a hematoma or an abscess. Also, he was noted to have very large renal cysts and a right lower lobe effusion. He did not demonstrate any gallbladder stones or gallbladder wall thickening. As a result, we were able to control his pain using Demerol and he is sent home with a prescription for that. We will see him back in the office next week. A HIDA scan will be performed in the next couple of days at [facility]. We are working on scheduling that at this time. He is to call or return for increasing pain. The plan is discussed with the patient prior to his discharge today. CONDITION ON DISCHARGE: He is discharged to home in improved condition. MOLLY
[2017-03-29] MEDS: IPRATROPIUM/ALBUTEROL SULFATE 3 ML AMPUL.NEB NEB SCH (11:21)
== END 2017-03-29 11:55 | disposition home or self-care (01) ==
LOC: ED 07:33 → SOUTH 13:26
PROVIDERS: ADMIT Family Medicine; ATTEND Family Medicine
DX: T14.90XA Injury, unspecified, initial encounter (principal); R10.11 Right upper quadrant pain
CPT/HCPCS: 36415; 71010; 74000; 74177; 80053; 81002; 82550; 82553; 83690; 83880; 84484; 85025; 85027; 93005; 94640; 94760; A9270; G0378; J1885; J2175; J2405; J7030; 96365; 96375; 99217; 99219; 99225; 99283; Q9967; S0028

== ENCOUNTER 2017-03-29 11:37 | Emergency (ER) | payer OTHER ==
[2017-03-29] MEDS: IPRATROPIUM/ALBUTEROL SULFATE 3 ML AMPUL.NEB NEB ONE ×3 (11:40→13:15)
--- NOTE | 2017-03-29 11:45 | ED Physician Documentation ---
General Adult - HISTORIAN Historian: patient - HPI Stated Complaint: sob Chief Complaint: General Adult Onset: days ago Timing: still present Severity: moderate Further Comments: yes (Pt is a 66 yo male with sob, wheezing, that came on as he was waiting for ride home after being d/c'd from [facility] this am. Pt was admitted for abd pain and had an abd CT here 24 hrs ago that showed R lung base consolidation/effusion in addition to fatty liver and diverticulosis. Pt is suspected of having gall bladder dz and is awaiting a HIDA scan. Pt has a hx chronic bronchitis and had an SpO2=87% on arrival in ER.) - ROS CONST: weakness CVS/RESP: shortness of breath, cough, other (wheezing) GI/: abdominal pain MS/SKIN/LYMPH: ankle swelling - PAST HX Past History: other (chronic bronchitis; HTN; HLD; esophageal stricture; hx alcoholism (20 yrs sober).) Allergies/Adverse Reactions: Allergies Allergy/AdvReac Type Severity Reaction Status Date / Time codeine [Codeine] Allergy Severe Anaphylaxis Verified 03/11/17 14:45 Home Medications: Ambulatory Orders Medication Instructions Recorded Ipratropium/Albuterol Sulfate 3 ml INH QID 03/11/17 [Duoneb] Losartan Potassium [Cozaar] 100 mg PO DAILY 03/11/17 Pantoprazole Sodium [Protonix] 40 mg PO BID 03/11/17 Metoprolol Tartrate [Lopressor] 50 mg PO DAILY 03/27/17 - SOCIAL HX Smoking History: non-smoker Alcohol Use: none Drug Use: none - FAMILY HX Family History: Yes (Mother: CAD; Father: CAD, alcoholism; Brother: alcoholism; Sister: HTN) - VITAL SIGNS Vital Signs: Vital Signs Temp Pulse Resp BP Pulse Ox 153/85 03/29/17 06:00 - REVIEWED ASSESSMENTS Nursing Assessment Reviewed: Yes Vitals Reviewed: Yes Progress - Progress Progress: CXR: No acute appearing pulmonary process. (CT abd yesterday showed R lung base consolidation/effusion in addition to fatty liver and diverticulosis.) Duoneb HFN improved Duoneb HFN Depo-Medrol 80 mg IM in ER improved Pt desires d/c home from ER. Pt has HIDA scan scheduled for Mon04-03-17. D/c instructions: Z-raudel. Use as directed on package. Prednisone 10 mg. Take 6 tablets at the same time each day for 3 days; then 4 tablets once daily for 3 days; then 2 tablets daily once daily for 3 days; then 1 tablet once daily for 3 days; then stop. Follow up with Dr. Gannon later this week. Call for an appointment on Monday. General Adult Physical Exam - PHYSICAL EXAM GENERAL APPEARANCE: moderate distress EENT: pharynx normal NECK: normal inspection, supple RESPIRATORY: wheezes, rhonchi CVS: reg rate & rhythm, heart sounds normal ABDOMEN: soft, no organomegaly, normal bowel sounds, tenderness (mild RUQ) BACK: normal inspection SKIN: warm/dry, normal color, other (ecchymosis R lower abd wall) EXTREMITIES: non-tender, normal range of motion, edema (1+) NEURO: oriented X3, motor nml, sensation nml Discharge Clincal Impression: chronic bronchitis, possible gall bladder dz Referrals: Joe Gannon MD [STAFF PHYSICIAN] - 2 Days Condition: Stable Disposition: 01 HOME, SELF-CARE Decision to Admit: NO Decision Time: 14:33
[2017-03-29 11:53] VITALS: BP 129/73
[2017-03-29 12:16] LABS: BASOPHILS % 0.8 (0.0-1.5); EOSINOPHILS % 13.4 % (0.0-6.8); MEAN CORPUSCULAR HEMOGLOBIN 30.5 pg (28.0-34.0); MEAN CORPUSCULAR VOLUME 95.7 fl (80.0-100.0); MONOCYTES % 4.5 % (0.0-11.0); NEUTROPHILS # 4.7 # k/uL (1.4-7.7)
[2017-03-29 12:30] LABS: eGFR (African) > 60; eGFR (Non-African) > 60
--- NOTE | 2017-03-29 13:40 | Diagnostic Imaging Report ---
DIRK TRAN [facility] [address] [facility] [address] [address] Report Submission Date: Mar 29, 2017 12:12:37 PM HEAD OF TALENT MANAGEMENT Patient Study Name: THOMAS DEGROOT Date: Mar 29, 2017 12:02:08 PM HEAD OF TALENT MANAGEMENT Modality Type: CR Gender: M Description: CHEST : 54 Institution: [facility] Physician: DIRK TRAN Examination: Portable chest History: Evaluate lungs Comparison exam: 27 March 2017 Findings: PA lateral chest demonstrate a mildly hypoventilated inspiratory effort resulting in crowding of the cardiac and mediastinal silhouette. Tortuous aorta. No focal infiltrate. No blunting of the costophrenic margins. Osseous structures are appropriate for age. Impression: No acute appearing pulmonary process. Electronically signed on Mar 29, 2017 12:12:37 PM HEAD OF TALENT MANAGEMENT by: Kavin BARNES
[2017-03-29] MEDS: methylPREDNISolone ACETATE 80 MG/ML VIAL IM STA (14:18)
[2017-03-29] MEDS: AZITHROMYCIN 250 MG TABLET PO ONE (14:19)
[2017-03-29] MEDS ORDERED: AZITHROMYCIN 250 MG TABLET PO ONE (14:20)
== END 2017-03-29 14:34 | disposition home or self-care (01) ==
LOC: ED 11:37
DX: J42 Unspecified chronic bronchitis (principal); I10 Essential (primary) hypertension; E78.5 Hyperlipidemia, unspecified
CPT/HCPCS: 71010; 80053; 85025; 94640; 96372; 99283; J1040; S1016

== ENCOUNTER 2017-03-31 05:30 | Emergency (ER) | payer OTHER ==
--- NOTE | 2017-03-31 05:40 | ED Physician Documentation ---
General Adult - HISTORIAN Historian: patient - HPI Stated Complaint: feels like his pills are stuck Chief Complaint: General Adult Onset: other (this am's pills ) Timing: still present Severity: mild Further Comments: yes (reports he has a hiatal hernia and he feels his pills are stuck. He denies any shortness of breath. He recently had a issue with influenza and he was in the hosptial. He states overall he feels good He states that he took a "horse pill") Last known Well Code/Unknown Code: Unknown - ROS CONST: no problems - PAST HX Past History: hypertension Surgeries/Procedures: other Immunizations: referred to PCP Allergies/Adverse Reactions: Allergies Allergy/AdvReac Type Severity Reaction Status Date / Time codeine [Codeine] Allergy Severe Anaphylaxis Verified 03/31/17 05:39 Home Medications: Ambulatory Orders Medication Instructions Recorded Ipratropium/Albuterol Sulfate 3 ml INH QID 03/11/17 [Duoneb] Losartan Potassium [Cozaar] 100 mg PO DAILY 03/11/17 Pantoprazole Sodium [Protonix] 40 mg PO BID 03/11/17 Metoprolol Tartrate [Lopressor] 50 mg PO DAILY 03/27/17 - SOCIAL HX Smoking History: non-smoker Alcohol Use: none Drug Use: none - FAMILY HX Family History: No - VITAL SIGNS Vital Signs: Vital Signs Temp Pulse Resp BP Pulse Ox 129/73 03/29/17 11:38 - REVIEWED ASSESSMENTS Nursing Assessment Reviewed: Yes Vitals Reviewed: Yes ED Results Lab/Radiology - Radiology Radiology Impressions: Examination: PA and lateral chest. History: Evaluate lung helms. Comparison exam: 29 March 2017 Findings: PA lateral chest demonstrate a prominent cardiac and mediastinal silhouette. No focal infiltrate. No blunting of the costophrenic margins. Osseous structures are appropriate for age. Impression: No acute appearing pulmonary process. Electronically signed on Mar 31, 2017 6:10:23 AM ELIGIBILITY MANAGER by: Kavin Jones General Adult Physical Exam - PHYSICAL EXAM GENERAL APPEARANCE: no distress EENT: eye inspection normal, pharynx normal NECK: normal inspection RESPIRATORY: no resp distress, chest non-tender, breath sounds normal CVS: reg rate & rhythm, heart sounds normal, equal pulses, no murmur ABDOMEN: soft, normal bowel sounds, no distension, non-tender SKIN: other (large bruise on lateral side of right chest ) EXTREMITIES: non-tender NEURO: oriented X3, CN's nml as tested, motor nml, sensation nml Discharge Clincal Impression: Hiatal hernia Referrals: Nas Shook MD [Primary Care Provider] - 2 Days Additional Instructions: Continue to drink and eat small amounts Stay sitting up after eating Return to ER for any concerns Condition: Stable Disposition: 01 HOME, SELF-CARE Decision to Admit: NO Date of Decison to Admit: 03/31/17 Decision Time: 06:18
--- NOTE | 2017-03-31 06:30 | Diagnostic Imaging Report ---
DAVID PUENTE [facility] [address] [facility] [address] [place], [place]. [address] Report Submission Date: Mar 31, 2017 6:10:23 AM LATENT PRINT EXAMINER Patient Study Name: THOMAS DEGROOT Date: Mar 31, 2017 5:55:49 AM LATENT PRINT EXAMINER Modality Type: CR Gender: M Description: CHEST : 54 Institution: [facility] Physician: DAVID PUENTE Examination: PA and lateral chest. History: Evaluate lung helms. Comparison exam: 29 March 2017 Findings: PA lateral chest demonstrate a prominent cardiac and mediastinal silhouette. No focal infiltrate. No blunting of the costophrenic margins. Osseous structures are appropriate for age. Impression: No acute appearing pulmonary process. Electronically signed on Mar 31, 2017 6:10:23 AM LATENT PRINT EXAMINER by: Kavin BARNES
== END 2017-03-31 06:23 | disposition home or self-care (01) ==
LOC: ED 05:30
DX: K44.9 Diaphragmatic hernia without obstruction or gangrene (principal)
CPT/HCPCS: 71020; 99283

== ENCOUNTER 2017-04-13 11:21 | Outpatient (CLI) | payer OTHER ==
--- NOTE | 2017-04-13 14:54 | Diagnostic Imaging Report ---
CHILO APARICIO (TRAVEL SPECIALIST) - OP [facility] [address] [facility] [address] Report Submission Date: Apr 13, 2017 11:49:05 AM EXTRUSION DIE COORDINATOR Patient Study Name: THOMAS DEGROOT Date: Apr 13, 2017 11:29:57 AM EXTRUSION DIE COORDINATOR Modality Type: CR Gender: M Description: CHEST : 54 Institution: [facility] Physician: CHILO APARICIO (JOSH) - OP Examination: PA and lateral chest. History: CXR, CONTINUED COUGH X3 WEEKS, RT SIDED CHEST SORENESS, NO INJURY (Hx) / COUGH (DICOM Hx) / COUGH (Pt comments) Comparison exam: genu 2018. Findings: PA lateral chest demonstrate a decreased inspiratory effort resulting in crowding of the cardiac and mediastinal silhouette. Mildly tortuous aorta. Vascular crowding at the right lung base. No focal infiltrate. No blunting of the left costophrenic margin. Mild right lateral wall pleural thickening. Cortical irregularity involving a lower right lateral rib - likely 7th rib. Impression: Right basilar vascular crowding due to poor inspiratory effort. Right lower rib cortical irregularity associated with adjacent pleural thickening - recommend obtaining dedicated rib series to further evaluate. Electronically signed on Apr 13, 2017 11:49:05 AM EXTRUSION DIE COORDINATOR by: Kavin BARNES
== END 2017-04-13 11:22 ==
LOC: RAD 11:21
PROVIDERS: ATTEND Nurse Practitioner Family
DX: R05 Cough (principal)
CPT/HCPCS: 71020

== ENCOUNTER 2017-05-04 10:26 | Outpatient (CLI) | payer OTHER ==
--- NOTE | 2017-05-04 13:43 | Diagnostic Imaging Report ---
CHILO APARICIO (JOSH) - OP [facility] [address] [address] Report Submission Date: May 04, 2017 11:43:17 AM SUPERINTENDENT PLANT Patient Study Name: THOMAS DEGROOT Date: May 04, 2017 11:05:00 AM SUPERINTENDENT PLANT Modality Type: DX Gender: M Description: CHEST : 54 Institution: [facility] Physician: CHILO APARICIO (JOSH) - OP Examination: Plain film right ribs History: RT SIDE RIB PAIN (Hx) Findings: 4 views of the right ribs demonstrates 7th rib cortical angulation. Remaining rib margins are without irregularity. Significant right lateral pleural thickening. Blunting of the right costophrenic margin. Impression: Right 7th rib cortical irregularity. Right base pleural infiltrate/ effusion. Given the progression/persistence of symptoms, recommend CT chest to further evaluate. Electronically signed on May 04, 2017 11:43:17 AM SUPERINTENDENT PLANT by: Kavin BARNES
== END 2017-05-04 10:27 ==
LOC: RAD 10:26
PROVIDERS: ATTEND Nurse Practitioner Family
DX: R07.81 Pleurodynia (principal)
CPT/HCPCS: 71101

== ENCOUNTER 2017-07-07 11:05 | Outpatient (CLI) | payer OTHER | END 2017-07-07 11:06 | LOC: LAB 11:05 | PROVIDERS: ATTEND Physician Assistant | DX: S30.860A Insect bite (nonvenomous) of lower back and pelvis, initial encounter (principal); W57.XXXA Bitten or stung by nonvenomous insect and other nonvenomous arthropods, initial encounter; Y92.9 Unspecified place or not applicable | CPT/HCPCS: 36415; 86618; 86666; 86757 ==

== ENCOUNTER 2017-09-20 11:01 | Outpatient (CLI) | payer OTHER | END 2017-09-20 13:35 | LOC: LAB 11:01 | PROVIDERS: ATTEND Family Medicine | DX: N40.1 Benign prostatic hyperplasia with lower urinary tract symptoms (principal) | CPT/HCPCS: 36415; 84153 ==

== ENCOUNTER 2017-10-30 11:29 | Outpatient (CLI) | payer OTHER ==
--- NOTE | 2017-10-30 12:05 | Diagnostic Imaging Report ---
YAQUELIN VENTURA [facility] [address] [facility] [address] [place], [place]. [address] Report Submission Date: Oct 30, 2017 11:56:12 AM CDT Patient Study Name: THOMAS DEGROOT Date: Oct 30, 2017 11:28:34 AM CDT Modality Type: DX Gender: M Description: CHEST : 54 Institution: [facility] Physician: YAQUELIN VENTURA PA and lateral chest History: Cough and wheezing PA and lateral chest dated October 30, 2017 is compared with chest radiograph from April and May 2017 The cardiomediastinal silhouette is unchanged in size and configuration. Heart size is normal. There is no pleural effusion. The previously noted right basilar pleural effusion and/or pleural thickening noted on the May 2017 radiograph has resolved. There is still rib deformity at the mid to lower right lateral ribs, probably relating to prior trauma. Impression: There is persistent deformity involving mid to lower lateral right ribs, unchanged and probably relating to prior trauma. The pleural thickening and/or pleural fluid previously noted on the right has resolved. Currently, there is no active disease. Electronically signed on Oct 30, 2017 11:56:12 AM CDT by: Rebekah BARNES
== END 2017-10-30 11:30 ==
LOC: RAD 11:29
PROVIDERS: ATTEND Family Medicine
DX: J90 Pleural effusion, not elsewhere classified (principal); R05 Cough
CPT/HCPCS: 71046

== ENCOUNTER 2017-10-30 12:13 | Emergency (ER) | payer OTHER ==
--- NOTE | 2017-10-30 12:15 | ED Physician Documentation ---
General Adult - HISTORIAN Historian: patient - HPI Stated Complaint: dizziness Chief Complaint: General Adult Onset: minutes Timing: still present Severity: moderate Further Comments: yes (Pt is a 66 yo male with dizziness. Pt has hx rib fractures that he says occurred from coughing. He was to get a repeat chest x- ray to evaluate his chronic complaint of R lower rib pain. Pt became dizzy when walking to the x-ray department. No chest pain, n/v.) - ROS CONST: weakness EYES/ENT: none CVS/RESP: other (chronic rib pain) GI/: none MS/SKIN/LYMPH: none - PAST HX Past History: hypertension, other (heart dz, HLD) Allergies/Adverse Reactions: Allergies Allergy/AdvReac Type Severity Reaction Status Date / Time codeine [Codeine] Allergy Severe Anaphylaxis Verified 10/30/17 12:44 Home Medications: Ambulatory Orders Medication Instructions Recorded Losartan Potassium [Cozaar] 100 mg PO DAILY 03/11/17 - SOCIAL HX Smoking History: non-smoker - FAMILY HX Family History: No - VITAL SIGNS Vital Signs: Vital Signs Temp Pulse Resp BP Pulse Ox 129/73 03/29/17 11:38 - REVIEWED ASSESSMENTS Nursing Assessment Reviewed: Yes Vitals Reviewed: Yes Progress - Progress Progress: CXR: [earlier today as out-pt] There is persistent deformity involving mid to lower lateral right ribs, unchanged and probably relating to prior trauma. The pleural thickening and/or pleural fluid previously noted on the right has resolved. Currently, there is no active disease. NS 1 L IVF dizziness resolved f/u pcp re: chronic rib pain. General Adult Physical Exam - PHYSICAL EXAM GENERAL APPEARANCE: mild distress EENT: pharynx normal NECK: normal inspection, supple RESPIRATORY: no resp distress, breath sounds normal, other (R lower chest wall pain, chronic) CVS: reg rate & rhythm, heart sounds normal ABDOMEN: soft, no organomegaly, normal bowel sounds BACK: normal inspection, no CVA tenderness SKIN: warm/dry, normal color EXTREMITIES: non-tender, normal range of motion, no evidence of injury, no edema NEURO: oriented X3, motor nml, sensation nml Discharge Clincal Impression: transient lightheadedness, chronic rib pain Referrals: Nas Shook MD [Primary Care Provider] - Condition: Stable Disposition: 01 HOME, SELF-CARE Decision to Admit: NO Decision Time: 13:56
[2017-10-30] MEDS ORDERED: KETOROLAC TROMETHAMINE 60 MG/2 ML VIAL IM ONE (12:22)
[2017-10-30] MEDS ORDERED: 0.9 % SODIUM CHLORIDE 1,000 ML IV ONE (12:33)
[2017-10-30 13:25] LABS: BASOPHILS % 0.5 (0.0-1.5); EOSINOPHILS % 12.2 % (0.0-6.8); MEAN CORPUSCULAR HEMOGLOBIN 29.7 pg (28.0-34.0); MEAN CORPUSCULAR VOLUME 91.1 fl (80.0-100.0); MONOCYTES % 7.4 % (0.0-11.0); NEUTROPHILS # 3.5 # k/uL (1.4-7.7)
[2017-10-30 13:32] LABS: eGFR (African) > 60; eGFR (Non-African) > 60
[2017-10-30 14:12] VITALS: BP 128/68
== END 2017-10-30 14:11 | disposition home or self-care (01) ==
LOC: ED 12:13
DX: R07.81 Pleurodynia (principal); R42 Dizziness and giddiness
CPT/HCPCS: 80053; 82550; 82553; 83880; 84484; 85025; 85379; J7030; 96365; S1016

== ENCOUNTER 2017-11-17 10:29 | Outpatient (CLI) | payer OTHER ==
--- NOTE | 2017-11-22 15:19 | CONSULTATION REPORT ---
PRIMARY CARE PROVIDER: Dr. Joe Gannon CONSULTING PHYSICIAN: Sharon Crawford MD CHIEF COMPLAINT: "My ribs are really bothering me." SIGNIFICANT PROBLEM LIST: 1. Asthma. 2. Obstructive sleep apnea. 3. Hypertension. 4. Gastroesophageal reflux disease (GERD). 5. Hyperlipidemia. 6. Environmental allergies. 7. History of alcoholism: Quit 20 years ago. 8. Esophageal stricture. 9. Psychiatric disease leading to disability: Mental deficiencies, explosive personality, inability to manage anger. 10. Class 2 obesity. BMI is 39.02. 11. Hard of hearing. HISTORY OF PRESENT ILLNESS: On October 30, 2017, the patient saw Dr. Gannon in the office regarding a recurrent right pleural effusion, chronic rib pain, cough, and asthma. Patient was subsequently referred to the pulmonary clinic. Currently, the patient's main complaint is right rib pain. He states that in January 2017, he had the flu associated with a strong cough. He was hospitalized at [facility] and was discharged but, subsequently, went to the [facility] and was re- hospitalized for 7 days. The patient states that he broke some ribs on the right side due to his coughing. Patient has been diagnosed with sleep apnea. He states that he had a polysomnography at [facility] in 2018. He states that he now uses his CPAP regularly between 8 to 9 hours per night. His DME is [facility]. He does not have any home oxygen. Asthma, currently the patient does not view asthma as a significant problem. He states that when he lived in [place], [place], and then moved to [place], that his asthma significantly improved because he has severe environmental allergies. Regarding his asthma, he has never been hospitalized for it and never been in an intensive care unit, and has never been intubated. He does use his bronchodilator and he has been on antibiotics and a prednisone taper in the past because of his asthma. 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 He was subsequently fired allegedly due to racism. He then states that he obtained disability based on psychiatric issues and has been on multiple medications including Seroquel, Prozac, Zoloft, and amitriptyline. The last time he took any medication was 7 to 8 years ago. The last time he saw a psychiatrist was approximately 10 years ago. Patient also states that he stopped his Lasix medication last week because he had dribble in his urination. Patient does have GERD and occasionally takes medication for it. He occasionally has postnasal drip. He has been on prednisone and antibiotics for his lung. He has had hemoptysis in the past, none recent. He denies chest pain. Denies PND. He does have ankle edema. His weight, he has been gaining. Appetite is good. Energy level is reasonable with an occasional cough. He denies any history of a DVT. Tobacco use: Patient chews tobacco. REVIEW OF SYSTEMS: Please see HPI for pertinent review of systems. All other systems are negative. Please see [facility] intake form for further review of systems. ALLERGIES: 1. Codeine. 2. Venlafaxine. MEDICATIONS: 1. Breo Ellipta (fluticasone 200 mcg, vilanterol 25 mcg) 1 inhalation daily. 2. Albuterol MDI b.i.d. and p.r.n. 3. Unknown medicine via his nebulizer p.r.n. 4. Metoprolol 50 mg daily. 5. Losartan 100 mg daily. 6. Benzonatate 100 mg p.r.n. 7. Gaviscon 2 tablets at bedtime. 8. Saline nasal spray. RECENT MEDICATIONS THAT THE PATIENT STOPPED: 1. Furosemide 40 mg daily. 2. KCL 20 mEq daily. SOCIAL HISTORY: Patient lives alone. He has no family. No children. He is disabled due to psychiatric issues. FAMILY HISTORY: Per the [facility] intake record. Patient states that he does not know his family's medical history. Per Dr. Gannon's notes, mother had cardiovascular disease. Father had cardiovascular disease and alcoholism. Brother with alcoholism. Sister with hypertension. PHYSICAL EXAMINATION: Vital Signs: BP: 136/79, P: 69, R: 20, T: 97.9. Room air oxygen saturation was 94%. Height: 5 feet 10 inches. Weight: 272 pounds. BMI was 39.02. General: This is an obese well-developed male in no acute distress speaking in full sentences. HEENT: Pupils are equal and reactive to light. Oropharynx is clear. No thrush. No erythema. NECK: Supple. No JVD. No lymphadenopathy. LUNGS: Good bilateral and equal air excursion. Clear to auscultation. No wheezes, rales, or rhonchi. No tactile fremitus. CARDIAC: Rate and rhythm are regular. S1, S2, without S3 or S4. No murmur, rubs, or gallops. ABDOMEN: Obese. Soft. Positive bowel sounds. Difficult to assess for organomegaly. EXTREMITIES: No cyanosis, clubbing, or edema. NEUROLOGIC: Alert and oriented x3. Grossly nonfocal exam. IMAGING: All imaging independently reviewed by me personally. 1. Chest x-ray on October. Peribronchial cuffing. No infiltrates. No effusions. Rib deformity on the right [id number] region. 2. Chest x-ray on May 04, 2017. A right pleural effusion with fluid in the fissure. 3. Rib x-ray on May 04, 2017. Cortical abnormality in the right 7th rib. 4. Chest x-ray on April 13, 2017. Fluid in the fissure, blunted right costophrenic angle, mid-right rib irregularity. LABORATORIES: 1. CBC on October 30, 2017. White count 6.2, hemoglobin 16.1, hematocrit 49.3, platelets 247,000. 2. Chemistries on October 30, 2017. Sodium 138, potassium 4.3, chloride 106, carbon dioxide 26, BUN 14, creatinine 1, calcium 9.3, total bilirubin 0.5, AST 21, ALT 32, alkaline phosphatase 75 ASSESSMENT AND PLAN: PROBLEM #1: Chronic right rib pain. Patient states this is his chief complaint. He has tried ibuprofen and Tylenol in the past and that does not help him much. Patient states that this was trauma secondary to severe coughing. Patient also has a history of asbestosis exposure and may have pleural thickening based on that. PLAN: 1. Keep pain clinic referral by Dr. Gannon. 2. Chest CT scan to assess whether there is asbestos exposure and any other underlying lung parenchymal issues. PROBLEM #2: Obstructive sleep apnea. Patient states he is extremely compliant with his CPAP. PLAN: 1. Obtain polysomnography from [facility] that was done some time in 2018. 2. Continue CPAP. PROBLEM #3: Possible asbestos exposure. This is per the patient's history. 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 PROBLEM #4: Asthma. At present, patient is quite stable from an asthmatic standpoint. PLAN: 1. Obtain PFT with room air ABG. 2. Continue Breo Ellipta (fluticasone 200 mcg, vilanterol 25 mcg). 3. Continue albuterol MDI p.r.n. shortness of breath. 4. Patient to bring in the name of his nebulized medication on the next visit. PROBLEM #5: Psychiatric issues that led to his disability. PLAN: 1. Obtain records from [facility] regarding his psychiatric visits. 2. Return to clinic when above plans have been completed. cc: Dr. Joe BARNES
== END 2017-11-17 10:30 ==
LOC: PULMONARY 10:29
PROVIDERS: ATTEND Internal Medicine Pulmonary Disease
DX: R07.82 Intercostal pain (principal); G47.33 Obstructive sleep apnea (adult) (pediatric); J45.909 Unspecified asthma, uncomplicated; F99 Mental disorder, not otherwise specified
CPT/HCPCS: 99214; G0463

== ENCOUNTER 2017-11-22 09:41 | Outpatient (CLI) | payer OTHER ==
[2017-11-22 10:53] LABS: eGFR (Non-African) > 60
--- NOTE | 2017-11-22 18:17 | Diagnostic Imaging Report ---
MILIND JARRETT [facility] [address] [facility] [address] [place] [address]. [id number] Report Submission Date: Nov 22, 2017 2:35:53 PM CDT Patient Study Name: THOMAS DEGROOT Date: Nov 22, 2017 10:56:33 AM CDT Modality Type: CT Gender: M Description: CT CHEST W/ CONTRAST : 54 Institution: [facility] Physician: MILIND JARRETT Examination: CT chest History: HX OF ASTHMA AND ASBESTOSIS. PT STATES NON-SMOKER (Hx) Comparison exams: Plain film dated 30 October 2017 Technique: CT chest with contrast protocol Findings: Mild bibasilar interstitial prominence. Inferior anterior segment right upper lung calcified granuloma. Noncalcified nodule right middle lung adjacent to the diaphragm measuring 7 mm. No posterior pleural effusion. Thoracic aorta without evidence for aneurysm. Anterior mediastinum and stefany are without gross mass or pathologic adenopathy. Cardiac silhouette not enlarged. No pericardial effusion. Lower neck structures are without gross abnormality. Bilateral renal cysts. Diffuse low attenuation involving the liver. Degenerative spurring of the thoracic vertebral bodies. Impression: Chronic appearing interstitial changes. 7 mm noncalcified nonpathologic right middle lung nodule. Consider follow up in 6 months to document stability. Fatty liver, renal cysts. Electronically signed on Nov 22, 2017 2:35:53 PM CDT by: Kavin BARNES
== END 2017-11-22 09:42 ==
LOC: SUATTDRO 09:41 → RAD 09:41
PROVIDERS: ATTEND Family Medicine
DX: G47.33 Obstructive sleep apnea (adult) (pediatric) (principal); J45.909 Unspecified asthma, uncomplicated; R07.81 Pleurodynia
CPT/HCPCS: 36415; 71260; 80053; Q9967

== ENCOUNTER 2017-11-28 09:41 | Outpatient (CLI) | payer OTHER ==
[2017-11-28] MEDS ORDERED: ALBUTEROL SULFATE 2.5 MG/3 ML AMPUL.NEB NEB ONE (10:00)
[2017-11-28 10:05] LABS: ABG BASE EXCESS 1.5 (-2 - +2); ABG PH 7.43 (7.35-7.45)
[2017-11-28] MEDS ORDERED: RED CRASH CART TAGS 1 EACH MC ONE (14:16)
== END 2017-11-28 09:42 ==
LOC: RT 09:41
PROVIDERS: ATTEND Internal Medicine Pulmonary Disease
DX: G47.33 Obstructive sleep apnea (adult) (pediatric) (principal); J45.909 Unspecified asthma, uncomplicated; R07.81 Pleurodynia
CPT/HCPCS: 36600; 82803; 94060

== ENCOUNTER 2017-12-19 11:08 | Outpatient (CLI) | payer OTHER ==
--- NOTE | 2017-12-19 13:40 | HISTORY AND PHYSICAL REPORT ---
REFERRING PHYSICIAN: Dr. Joe Gannon Dear Joe: HISTORY OF PRESENT ILLNESS: I had the opportunity of seeing Jeremy Marroquin today as an outpatient at [facility]. As you are aware, Mr. Marroquin is a very interesting 67-year-old white male who has a 1-year history of right-sided chest wall pain. He says the pain is primarily right side anterior lateral lower quadrant over the chest. He says he has had a rib fracture from coughing in the past and that this was about a year ago and the pain has not subsided since then. He says it hurts to cough or sneeze or yawn. He says he feels that the skin is anesthetic over the right lower chest wall but otherwise, he hurts. He had a physician provide him with what sounds like a thoracic epidural injection for thoracic radicular pain at one point. He said that this did not provide him any relief. He says that particularly coughing and deep breathing exacerbate the symptoms and that they are focal and they do not radiate around to the back side. He denies pain on the left side. He denies pain in the arms or lower extremities. PAST MEDICAL HISTORY: 1. History of vision problems. 2. Hearing loss. 3. Heart murmur. 4. Hypertension. 5. COPD. 6. Asthma or bronchitis. 7. Hiatal hernia. 8. Stomach ulcers or gastritis. 9. Depression. 10. Anxiety. 11. Hyperlipidemia. 12. Alcoholism 20 years ago. PAST SURGICAL HISTORY: 1. Bilateral club foot repair. 2. Tonsillectomy. 3. Esophageal stretching. 4. Missing teeth removed. DAILY MEDICATIONS: 1. Breo Ellipta 200/25 daily. 2. Albuterol p.r.n. 3. Ibuprofen 800 mg p.r.n. 4. Furosemide 40 mg daily. 5. Potassium 20 mEq daily. 6. Losartan 100 mg daily. 7. Metoprolol 50 mg daily. ALLERGIES: 1. Codeine. 2. Effexor. SOCIAL HISTORY: He is a former tobacco chewer. He quit 10 years ago. History of alcoholism, currently drinks approximately 4 drinks per year. He admits to occasional marijuana use. He is . He has 2 children. He lives at home alone. He completed the 12th grade. 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 He is disabled. FAMILY HISTORY: Mother with heart disease. Father with heart disease and alcoholism. Siblings with alcoholism and hypertension. REVIEW OF SYSTEMS: In the last month or so, he reports a weight gain, head cold, chest pain, swelling in feet, feeling depressed. Pain is worsened with coughing and sneezing. Nothing improves his pain. PHYSICAL EXAMINATION: Vital Signs: BP: 130/74, P: 80, R: 20, oxygen saturation is 97% on room air. General: The patient is well nourished, well developed, and in no apparent distress. Awake, alert, and oriented. HEENT: Pupils are equal, round, and reactive to light and accommodation. Extraocular movements intact. No facial droop. Neck: There is full range of motion of the cervical spine. No evidence of adenopathy. Thyroid is nontender, not enlarged. Carotids are without bruits. Chest: Clear to auscultation bilaterally. Normal chest excursion. Heart: Regular rate and rhythm without murmur. Abdomen: Benign. Normoactive bowel sounds. Motor/sensory: Intact in the upper and lower extremities. Moves all extremities freely. Back: There is a Tinel's sign over the costosternal junctions in the T8, T9, and T10 positions over the rib margins which seem to re-create his symptoms. ASSESSMENT: Costosternal pain, likely secondary from a cartilaginous injury from prolonged coughing. PLAN: At this point, I told him that I have several ways that we treat this and I would like to put him on a significant dose of prednisone with a taper and provide him with Flector patches that he can place over the affected area for the next month and see if that resolves the symptoms. Otherwise, he would need costosternal injections at the cartilaginous junctions likely with monitored anesthesia care and he tells me he does not have a interstate bus driver and he cannot get a interstate bus driver, and I think this would be fairly invasive for the symptoms that he is presenting with. So, at this point, I have explained that I would like to be conservative and see if we can get these symptoms to resolve with the above mentioned plan. He is in agreement, and I will be glad to follow him up in a month and see how he is doing. Dr. Gannon, thank you very much for allowing me to take part in the care of this nice gentleman. I appreciate the opportunity to take part in the care of your patients. cc: Dr. Joe BARNES
== END 2017-12-19 11:10 ==
LOC: OUT 11:08
PROVIDERS: ATTEND Anesthesiology Pain Medicine
DX: R07.89 Other chest pain (principal); J44.9 Chronic obstructive pulmonary disease, unspecified; Z87.891 Personal history of nicotine dependence; F10.21 Alcohol dependence, in remission; F41.8 Other specified anxiety disorders
CPT/HCPCS: 99214; G0463

== ENCOUNTER 2018-11-09 11:27 | Emergency (ER) | payer MEDICARE, OTHER ==
[2018-11-09 11:48] VITALS: BP 132/93
--- NOTE | 2018-11-09 11:52 | ED Physician Documentation ---
Flank Pain - HISTORIAN Historian: patient - HPI Stated Complaint: kidney pain Chief Complaint: Flank Pain Additional Information: Patient presents to ED with right flank pain. Patient was seen on 10/28/18 and given bactrim and tramadol for UTI. Patient was unable to complete 7 day course of Bactrim due to GI upset. He took 4.5 days of bactrim. He is still having right flank pain which he describes at dull ache, non-radiating, 5/10. Onset: days ago (10) Duration: constant Timing: still present Context: denies: out of country travel Severity: moderate Quality: aching, dull Associated Symptoms: none Exacerbated by: walking - ROS CONST: no problems GI/: denies: bloody urine, dark urine CVS/RESP: none EYES/ENT: none MS/SKIN/LYMPH: none - SOCIAL HX Smoking History: non-smoker Alcohol Use: none Drug Use: none - FAMILY HX Family History: none - PAST HX Past History: none Ischemic Bowel Risk Factors: none Other History: none - VITAL SIGNS Vital Signs: Vital Signs Temp Pulse Resp BP Pulse Ox 96.2 F L 77 20 132/93 96 11/09/18 11:43 11/09/18 11:43 11/09/18 11:43 11/09/18 11:43 11/09/18 11:43 - REVIEWED ASSESSMENTS Nursing Assessment Reviewed: Yes Vitals Reviewed: Yes ED Results Lab/Radiology - Lab Results Lab Results: UA - neg blood, neg nitrite, neg leuko, specific gravity 1.020 - Radiology Radiology Impressions: Report Submission Date: Nov 09, 2018 12:29:18 PM CDT Patient Study Name: THOMAS DEGROOT Date: Nov 09, 2018 11:57:23 AM CDT Modality Type: CT\SR Gender: M Description: CT ABD /PEL W/O CONTRAST : 54 Institution: [facility] Physician: MARITO WEBB Examination: CT Abdomen/pelvis History: KIDNEY PAIN,PT STATES RT SIDE KIDNEY PAIN Comparison exams: 0.6 genu 2018 Technique: CT Abdomen/pelvis without IV protocol. Findings: Liver, spleen, adrenals, pancreas and gallbladder are without gross irregularity given exam technique. No gallstone. No suspicious renal calcifications. Ureters are nondilated in their course through the abdomen and pelvis. No central calcifications. Bladder decompressed. Abdominal aorta without aneurysm. Mild peripheral atherosclerotic disease. Cardiac silhouette is not enlarged. No pericardial effusion. Bowel unopacified limiting evaluation. No abnormal dilation. Stool within the large bowel limiting sensitivity. No mesenteric inflammatory changes or free fluid. Appendix is visualized and is without inflammatory changes. Osseous structures appropriate for age. Lung bases without infiltrate. Stable 4 mm right diaphragmatic nodule. No effusion. Impression: No acute upper abdominal organ inflammatory process. No abnormal bowel dilation or inflammation. No gallstone. Stable bilateral renal cysts. No suspicious renal calcifications or abnormal ureteric dilation. No lung base consolidation or effusion. Electronically signed on Nov 09, 2018 12:29:18 PM CDT by: Kavin Jones - Orders Orders: ED Orders Category Date Time Status CT ABD W/O CONTRAST Stat Exams 11/09/18 Ordered Abdominal Pain Physical Exam - Physical Exam General Appearance: no acute distress, alert EENT: JUAN CARLOS NECK: supple. No: lymphadenopathy RESPIRATORY: chest non-tender, breath sounds normal CVS: reg rate & rhythm, heart sounds normal ABDOMEN: soft, normal bowel sounds, non-tender BACK: normal inspection, CVA tenderness (R) SKIN: warm/dry, normal color EXTREMITIES: non-tender, no edema NEURO: oriented X3, mood/affect nml Vital Signs: Vital Signs Temp Pulse Resp BP Pulse Ox 96.2 F L 77 20 132/93 96 11/09/18 11:43 11/09/18 11:43 11/09/18 11:43 11/09/18 11:43 11/09/18 11:43 Discharge Clincal Impression: Low back pain Qualifiers: Chronicity: acute Back pain laterality: right Sciatica presence: without sciatica Qualified Code(s): M54.5 - Low back pain Referrals: Primary Doctor,No [Primary Care Provider] - 2 Days Additional Instructions: 1. Tylenol or Ibuprofen as needed for pain 2. Stretching exercises 3. Follow up with PCP within 1 week 4. Return to ER for new or worsening symptoms Condition: Stable Disposition: 01 HOME, SELF-CARE Decision to Admit: NO Date of Decison to Admit: 11/09/18 Decision Time: 12:40
--- NOTE | 2018-11-09 13:29 | Diagnostic Imaging Report ---
MARITO WEBB [facility] [address] [facility] [address] [place], [place]. [address] Report Submission Date: Nov 09, 2018 12:29:18 PM CDT Patient Study Name: THOMAS DEGROOT Date: Nov 09, 2018 11:57:23 AM CDT Modality Type: CT\SR Gender: M Description: CT ABD /PEL W/O CONTRAST : 54 Institution: [facility] Physician: MARITO WEBB Examination: CT Abdomen/pelvis History: KIDNEY PAIN,PT STATES RT SIDE KIDNEY PAIN Comparison exams: 0.6 genu 2018 Technique: CT Abdomen/pelvis without IV protocol. Findings: Liver, spleen, adrenals, pancreas and gallbladder are without gross irregularity given exam technique. No gallstone. No suspicious renal calcifications. Ureters are nondilated in their course through the abdomen and pelvis. No central calcifications. Bladder decompressed. Abdominal aorta without aneurysm. Mild peripheral atherosclerotic disease. Cardiac silhouette is not enlarged. No pericardial effusion. Bowel unopacified limiting evaluation. No abnormal dilation. Stool within the large bowel limiting sensitivity. No mesenteric inflammatory changes or free fluid. Appendix is visualized and is without inflammatory changes. Osseous structures appropriate for age. Lung bases without infiltrate. Stable 4 mm right diaphragmatic nodule. No effusion. Impression: No acute upper abdominal organ inflammatory process. No abnormal bowel dilation or inflammation. No gallstone. Stable bilateral renal cysts. No suspicious renal calcifications or abnormal ureteric dilation. No lung base consolidation or effusion. Electronically signed on Nov 09, 2018 12:29:18 PM CDT by: Kavin BARNES
[2018-11-09 14:20] LABS: APPEARANCE,URINE CLEAR (CLEAR); COLOR,URINE YELLOW (YELLOW); OCCULT BLOOD,URINE NEGATIVE (NEGATIVE); PH URINE 5.5 (5.0 - 8.0); UROBILINOGEN URINE 0.2 Eu (0.2-1.0)
== END 2018-11-09 12:54 | disposition home or self-care (01) ==
LOC: ED 11:27
DX: M54.5 Low back pain (principal)
CPT/HCPCS: 74176; 81002; 99283; 99284

== ENCOUNTER 2019-02-04 08:19 | Day surgery (SDC) | payer MEDICARE, OTHER ==
[2019-02-04] MEDS ORDERED: PROPOFOL 200 MG/20 ML VIAL IV ONE (08:48)
[2019-02-04] MEDS ORDERED: LIDOCAINE HCL 2% PF 100MG/5ML VIAL IJ ONE (08:48)
[2019-02-04] MEDS ORDERED: LACTATED RINGERS 1,000 ML IV.SOLN IV ONE (08:48)
--- NOTE | 2019-02-08 06:57 | GI Report ---
DATE OF PROCEDURE: 02/04/2019. REFERRING PROVIDER: Amelia Mirza NP. PROCEDURE PERFORMED: Colonoscopy and polypectomy. SURGEON: Marina Beltran M.D., Tony. INDICATION FOR PROCEDURE: 68-year-old man who had polyps he thought removed 10 years ago, so this is a screening colonoscopy. He denies any change in stool. He does have sleep apnea, and marked central obesity. He is on CPAP, on steroids and inhalers for his breathing. He is 6 foot, and weighs 276 lbs and carries all that weight centrally. PROCEDURE MEDICATION: Propofol, as per Anesthesia. DESCRIPTION OF PROCEDURE: The Olympus video colonoscope was advanced through the rectum. In the rectum there were 2 polyps, 3-4 mm size, removed with a cold snare. The colonoscope was slowly advanced all the way to the cecum. In the base of the cecum the patient had a 3-4 mm flat polyp, again removed with a cold snare. On slow withdrawal, the ascending colon, transverse colon redundancy but no obvious intraluminal lesions were noted. Descending colon and sigmoid: Again redundancy, but no obvious intraluminal lesions were noted. Retroflexion in the rectum: The 2 polyps seen were removed with cold snare. The patient tolerated the procedure well. We were light on the sedation because of his breathing issues. FINDINGS: Three polyps removed, 2 in the rectum, 1 in the cecum. RECOMMENDATIONS: 1. High fiber diet. 2. Weight reduction, cutting back on carbohydrates would be beneficial. 3. Pending pathology of the polyps, would have his colon re-looked at again in 5 years, sooner if clinically indicated. MARINA BELTRAN M.D., Tere.Paty.CGermainP. Mindy R: 02/06/19 Job#: [id number] Cc: Amelia Mirza NP [facility]
== END 2019-02-04 10:40 | disposition home or self-care (01) ==
LOC: OPSURG 08:19
PROVIDERS: ATTEND Internal Medicine Gastroenterology
DX: Z12.11 Encounter for screening for malignant neoplasm of colon (principal); D12.0 Benign neoplasm of cecum; K62.1 Rectal polyp
CPT/HCPCS: 45385; J2001; J2704; J7120